=== PATIENT | female | born 1995 | race Native Hawaiian/Other Pacific Islander ===

== ENCOUNTER 2023-04-06 18:20 | Inpatient (IN) | payer MEDICAID, OTHER, SELFPAY ==
[2023-04-06] VITALS (8 sets, daily range): BP systolic 109–119; BP diastolic 56–60; TEMP 98.6; O2SAT 95–100
[~2023-04-06] VITALS: Ht 182.9 cm; Wt 185.4 kg
[2023-04-06] MEDS: SUCCINYLCHOLINE INJ 200MG/10ML VIAL IV STA (18:23)
[2023-04-06] MEDS: ETOMIDATE INJ 20MG/10ML VIAL IV ONE (18:23)
[2023-04-06] MEDS: LIDOCAINE 2% 5ML JELLY UROJET TOP ONE (18:30)
[2023-04-06] MEDS ORDERED: PROPOFOL 1,000 MG/100 ML VIAL As Ordered ONE (18:31)
[2023-04-06] MEDS: propofoL 1,000 MG in IV 1 EA IV SCH ×2 (18:37→23:35)
[2023-04-06] MEDS ORDERED: ISOVUE-370 76% 100ML VIAL As Ordered ONE (18:46)
[2023-04-06] MEDS: fentaNYL 100 MCG/2 ML INJECTION IV ONE (18:46)
[2023-04-06 18:48] LABS: ABG BASE EXCESS -4.1 (-2.0-2.0); ABG HCO3 25.4 MMOL/L (22.0-26.0); ABG O2 SATURATION 97.4 % (95.0-99.0); ABG PARTIAL PRESSURE O2 119.3 mmHg (75.0-100.0); ABG STANDARD HCO3 21.1 MMOL/L. (22.0-26.0); ABG TOTAL CO2 27.4 MMOL/L (22.0-29.0)
[2023-04-06 18:50] LABS: ABG PARTIAL PRESSURE CO2 67.6 mmHg (35.0-45.0); ABG pH (ARTERIAL) 7.192 UNITS (7.350-7.450)
[2023-04-06] MEDS: VECURONIUM BROMIDE 10MG VIAL IV ONE (19:01)
[2023-04-06 19:18] LABS: BASO % 0.2 % (0.0-1.0); EOS # 0.8 10^3/uL (0.0-0.5); EOS % 6.1 % (0.0-3.0); HEMATOCRIT 41.6 % (36.0-47.0); LYMPH # 2.1 10^3/uL (1.5-5.0); LYMPH % 15.8 % (24.0-44.0); MEAN CORPUSCULAR HEMOGLOBIN 21.4 pg (27.0-33.0); MEAN CORPUSCULAR HGB CONC 28.8 g/dl (32.0-36.5); MONO % 7.2 % (2.0-8.0); NEUTROPHILS # 9.2 10^3/uL (1.5-8.5); NEUTROPHILS % 70.1 % (36.0-66.0); PLATELET COUNT, AUTOMATED 370 10^3/uL (150-450); RED BLOOD COUNT 5.62 10^6/uL (4.00-5.40); WHITE BLOOD COUNT 13.2 10^3/uL (4.0-10.0)
[2023-04-06 19:41] LABS: OSMOLALITY SERUM 286 MOSM/KG (275-295)
[2023-04-06 19:43] LABS: ETHYL ALCOHOL (ETHANOL) < 0.003 % (0.000-0.010)
[2023-04-06 19:44] LABS: ALBUMIN 3.3 G/DL (3.2-5.2); ALKALINE PHOSPHATASE 107 U/L (46-116); ALT/SGPT 25 U/L (7.0-40); AST/SGOT 17 U/L (<34); BILIRUBIN,DIRECT < 0.1 MG/DL (<0.4); BILIRUBIN,TOTAL 0.2 MG/DL (0.3-1.2); BLOOD UREA NITROGEN 6 MG/DL (9-23); CALCIUM LEVEL 8.8 MG/DL (8.5-10.1); CARBON DIOXIDE LEVEL 30 MMOL/L (20-31); CHLORIDE LEVEL 101 MMOL/L (98-107); CPK CREATINE PHOSPHOKINASE 205 U/L (34-145); CREATININE FOR GFR 0.52 MG/DL (0.55-1.30); GLOMERULAR FILTRATION RATE > 60.0 (>60); GLUCOSE, FASTING 143 MG/DL (60-100); POTASSIUM SERUM 3.8 MMOL/L (3.5-5.1); SALICYLATE LEVEL < 3.0 MG/DL (<30); SODIUM LEVEL 138 MMOL/L (136-145); TOTAL PROTEIN 7.2 G/DL (5.7-8.2)
[2023-04-06 19:52] LABS: HCG, SERUM QUALITATIVE NEGATIVE (NEGATIVE)
[2023-04-06] MEDS: fentaNYL CITRATE/NaCl 1,000 MCG in IV 1 EA IV SCH (20:03)
[2023-04-06 20:39] LABS: AMPHETAMINES LEVEL URINE NEGATIVE (NEGATIVE); BARBITURATES URINE NEGATIVE (NEGATIVE); BENZODIAZEPINES URINE NEGATIVE (NEGATIVE); CANNABINOIDS URINE NEGATIVE (NEGATIVE); COCAINE METABOLITE URINE NEGATIVE (NEGATIVE); METHADONE URINE NEGATIVE (NEGATIVE); OPIATES URINE NEGATIVE (NEGATIVE); PHENCYCLIDINE URINE NEGATIVE (NEGATIVE)
[2023-04-06] MEDS: MIDAZOLAM INJ 2MG/2ML VIAL IV STA (20:49)
[2023-04-06 21:11] LABS: CK-MB VALUE MASS 1.3 NG/ML (<3.6); MB/CK RELATIVE INDEX 0.63 (< OR =4)
[2023-04-06 21:35] LABS: ABG BASE EXCESS 3.8 (-2.0-2.0); ABG HCO3 30.8 MMOL/L (22.0-26.0); ABG O2 SATURATION 97.8 % (95.0-99.0); ABG PARTIAL PRESSURE O2 105.8 mmHg (75.0-100.0); ABG STANDARD HCO3 27.9 MMOL/L. (22.0-26.0); ABG TOTAL CO2 32.6 MMOL/L (22.0-29.0); ABG pH (ARTERIAL) 7.343 UNITS (7.350-7.450)
[2023-04-06 21:50] LABS: CK-MB VALUE MASS 1.3 NG/ML (<3.6); MB/CK RELATIVE INDEX 0.52 (< OR =4)
[2023-04-06] MEDS ORDERED: IPRATROPIUM 0.5MG/ALBUTEROL 2.5MG INH SOL UD 3ML (DUONEB) NEB PRN (22:05)
[2023-04-06] MEDS ORDERED: HOME MED LIST COMPLETE! XX SCH (22:45)
[2023-04-06 23:07] LABS: RSV AMPLIFICATION NEGATIVE (NEGATIVE)
[2023-04-06] MEDS: MIDAZOLAM 100MG/100ML-0.9%NACL 100 MG in IV 1 EA IV SCH (23:37)
[2023-04-06 23:40] LABS: VENOUS BASE EXCESS 2.3 (-2.0-2.0); VENOUS HCO3 29.5 MMOL/L (23.0-27.0); VENOUS O2 SATURATION 98.8 % (60.0-80.0); VENOUS PARTIAL PRESSURE CO2 57.5 mmHg (38.0-50.0); VENOUS PARTIAL PRESSURE O2 144.8 mmHg (30.0-50.0); VENOUS PH 7.328 UNITS (7.330-7.430); VENOUS STANDARD HCO3 26.6 MMOL/L; VENOUS TOTAL CO2 31.3 MMOL/L (24.0-28.0)
[2023-04-07] VITALS (54 sets, daily range): BP systolic 110–165; BP diastolic 55–97; TEMP 97.8–99.1; O2SAT 94–100
[2023-04-07] MEDS: AMPICILLIN SOD/SULBACTAM SOD 3 GM in D5W MINI-BAG PLUS 100 ML IV SCH (00:26)
[2023-04-07 05:09] LABS: HEMATOCRIT 39.3 % (36.0-47.0); HEMOGLOBIN 11.8 g/dl (12.0-15.5); MEAN CORPUSCULAR HEMOGLOBIN 22.1 pg (27.0-33.0); MEAN CORPUSCULAR VOLUME 73.6 fl (80.0-96.0); PLATELET COUNT, AUTOMATED 314 10^3/uL (150-450); RED BLOOD COUNT 5.34 10^6/uL (4.00-5.40); WHITE BLOOD COUNT 11.2 10^3/uL (4.0-10.0)
[2023-04-07 05:43] LABS: PROCALCITONIN <0.04 ng/ml
[2023-04-07 05:44] LABS: ALKALINE PHOSPHATASE 95 U/L (46-116); ALT/SGPT 28 U/L (7.0-40); AST/SGOT 22 U/L (<34); BILIRUBIN,TOTAL 0.3 MG/DL (0.3-1.2); BLOOD UREA NITROGEN 5 MG/DL (9-23); CALCIUM LEVEL 8.8 MG/DL (8.5-10.1); CARBON DIOXIDE LEVEL 29 MMOL/L (20-31); CHLORIDE LEVEL 103 MMOL/L (98-107); CREATININE FOR GFR 0.49 MG/DL (0.55-1.30); GLOMERULAR FILTRATION RATE > 60.0 (>60); GLUCOSE, FASTING 114 MG/DL (60-100); POTASSIUM SERUM 3.4 MMOL/L (3.5-5.1); SODIUM LEVEL 139 MMOL/L (136-145); TOTAL PROTEIN 6.5 G/DL (5.7-8.2)
[2023-04-07 05:55] LABS: ABG HCO3 27.1 MMOL/L (22.0-26.0); ABG O2 SATURATION 97.7 % (95.0-99.0); ABG PARTIAL PRESSURE O2 105.4 mmHg (75.0-100.0); ABG STANDARD HCO3 25.4 MMOL/L. (22.0-26.0); ABG TOTAL CO2 28.6 MMOL/L (22.0-29.0)
[2023-04-07] MEDS: ENOXAPARIN 40MG/0.4ML SYRINGE (J1650 PER 10MG) SC SCH (08:46)
[2023-04-07] MEDS: D5W/0.9% SODIUM CHLORIDE 1,000 ML IV SCH (12:34)
[2023-04-07] MEDS: KCL 10MEQ/100ML SWI (KRUN) 10 MEQ in IV 1 EA IV SCH (12:35)
[2023-04-07] MEDS ORDERED: MIDAZOLAM INJ 2MG/2ML VIAL As Ordered ONE (16:04)
[2023-04-07] MEDS: MIDAZOLAM INJ 2MG/2ML VIAL IV STA (16:06)
[2023-04-07 16:18] LABS: TRIGLYCERIDES LEVEL 118 MG/DL (<150)
[2023-04-07 16:22] LABS: CPK CREATINE PHOSPHOKINASE 159 U/L (34-145)
[2023-04-07] MEDS: PANTOPRAZOLE 40MG VIAL IV SCH (16:51)
[2023-04-07] MEDS: ENOXAPARIN 60MG/0.6ML SYRINGE (J1650 PER 10MG) SC SCH (20:48)
[2023-04-08] VITALS (41 sets, daily range): BP systolic 106–166; BP diastolic 59–97; TEMP 97.9–101.5; O2SAT 93–100
[2023-04-08] MEDS: ACETAMINOPHEN *IV* 1,000 MG in IV 1 EA IV ONE ×2 (04:33→12:36)
[2023-04-08 05:25] LABS: HEMATOCRIT 41.2 % (36.0-47.0); HEMOGLOBIN 12.3 g/dl (12.0-15.5); MEAN CORPUSCULAR HEMOGLOBIN 21.9 pg (27.0-33.0); MEAN CORPUSCULAR HGB CONC 29.9 g/dl (32.0-36.5); MEAN CORPUSCULAR VOLUME 73.4 fl (80.0-96.0); PLATELET COUNT, AUTOMATED 322 10^3/uL (150-450); RED BLOOD COUNT 5.61 10^6/uL (4.00-5.40); WHITE BLOOD COUNT 12.2 10^3/uL (4.0-10.0)
[2023-04-08 05:43] LABS: ALBUMIN 2.9 G/DL (3.2-5.2); ALKALINE PHOSPHATASE 91 U/L (46-116); ALT/SGPT 25 U/L (7.0-40); AST/SGOT 20 U/L (<34); BILIRUBIN,TOTAL 0.4 MG/DL (0.3-1.2); BLOOD UREA NITROGEN 5 MG/DL (9-23); CALCIUM LEVEL 8.2 MG/DL (8.5-10.1); CARBON DIOXIDE LEVEL 33 MMOL/L (20-31); CHLORIDE LEVEL 102 MMOL/L (98-107); CREATININE FOR GFR 0.56 MG/DL (0.55-1.30); GLOMERULAR FILTRATION RATE > 60.0 (>60); GLUCOSE, FASTING 99 MG/DL (60-100); POTASSIUM SERUM 3.6 MMOL/L (3.5-5.1); SODIUM LEVEL 140 MMOL/L (136-145); TOTAL PROTEIN 6.7 G/DL (5.7-8.2)
[2023-04-08 05:46] LABS: ABG BASE EXCESS 5.2 (-2.0-2.0); ABG HCO3 31.3 MMOL/L (22.0-26.0); ABG O2 SATURATION 96.8 % (95.0-99.0); ABG PARTIAL PRESSURE CO2 52.5 mmHg (35.0-45.0); ABG PARTIAL PRESSURE O2 87.5 mmHg (75.0-100.0); ABG STANDARD HCO3 29.1 MMOL/L. (22.0-26.0); ABG TOTAL CO2 32.9 MMOL/L (22.0-29.0); ABG pH (ARTERIAL) 7.393 UNITS (7.350-7.450)
[2023-04-08] MEDS: dexmedeTOMidine 200 MCG in IV 1 EA IV SCH (07:59)
[2023-04-08] MEDS: ACETAMINOPHEN TAB 650MG DOSE (2X325MG) PO PRN (09:45)
[2023-04-08] MEDS: IBUPROFEN 400MG TAB PO ONE (09:46)
[2023-04-08] MEDS ORDERED: FENTANYL DRIP LOCK BOX KEY 1 EACH XX PRN (10:25)
[2023-04-08] MEDS ORDERED: fentaNYL 100 MCG/2 ML INJECTION As Ordered ONE (10:28)
[2023-04-08] MEDS: fentaNYL CITRATE/NaCl 1,000 MCG in IV 1 EA IV SCH (11:05)
[2023-04-08] MEDS: fentaNYL 100 MCG/2 ML INJECTION IV PRN (11:30)
[2023-04-08 14:42] LABS: CHOLESTEROL LEVEL 135 MG/DL (<200); HDL CHOLESTEROL 35.5 MG/DL (>40); LDL CHOLESTEROL 73.3 MG/DL (<100); NON-HDL-C 99.5 MG/DL; TRIGLYCERIDES LEVEL 131 MG/DL (<150)
[2023-04-08] MEDS: ASPIRIN 81MG CHEW TABLET PO SCH (14:54)
[2023-04-08] MEDS: ATORVASTATIN 20 MG TAB PO SCH (14:56)
[2023-04-08] MEDS: NS 1,000 ML IV ONE (15:04)
[2023-04-08] MEDS: MIDAZOLAM 100MG/100ML-0.9%NACL 100 MG in IV 1 EA IV SCH (15:50)
[2023-04-08] MEDS: NS 1,000 ML IV SCH (16:35)
[2023-04-08] MEDS ORDERED: PHENYLEPHRINE HCL INJ 50 MG in D5W 495 ML IV SCH (18:30)
[2023-04-08] MEDS: PHENYLEPHRINE HCL INJ 50 MG in D5W 495 ML IV SCH (18:36)
[2023-04-08] MEDS: MIDAZOLAM INJ 2MG/2ML VIAL IV PRN (19:55)
[2023-04-08] MEDS: SENNA 8.6 MG TAB (SENOKOT) PO SCH (21:18)
[2023-04-09] VITALS (60 sets, daily range): BP systolic 100–170; BP diastolic 52–93; TEMP 97.9–101.7; O2SAT 89–100
[2023-04-09] MEDS: IBUPROFEN 400MG TAB PO ONE (01:35)
[2023-04-09 05:09] LABS: HEMATOCRIT 37.9 % (36.0-47.0); HEMOGLOBIN 11.4 g/dl (12.0-15.5); MEAN CORPUSCULAR HEMOGLOBIN 22.4 pg (27.0-33.0); MEAN CORPUSCULAR HGB CONC 30.1 g/dl (32.0-36.5); MEAN CORPUSCULAR VOLUME 74.3 fl (80.0-96.0); PLATELET COUNT, AUTOMATED 353 10^3/uL (150-450); WHITE BLOOD COUNT 17.2 10^3/uL (4.0-10.0)
[2023-04-09 05:51] LABS: ALBUMIN 2.7 G/DL (3.2-5.2); ALKALINE PHOSPHATASE 81 U/L (46-116); ALT/SGPT 20 U/L (7.0-40); AST/SGOT 23 U/L (<34); BILIRUBIN,TOTAL 0.7 MG/DL (0.3-1.2); BLOOD UREA NITROGEN 11 MG/DL (9-23); CALCIUM LEVEL 8.5 MG/DL (8.5-10.1); CARBON DIOXIDE LEVEL 32 MMOL/L (20-31); CHLORIDE LEVEL 102 MMOL/L (98-107); CREATININE FOR GFR 0.54 MG/DL (0.55-1.30); GLOMERULAR FILTRATION RATE > 60.0 (>60); GLUCOSE, FASTING 97 MG/DL (60-100); MAGNESIUM LEVEL 2.3 MG/DL (1.8-2.4); POTASSIUM SERUM 3.6 MMOL/L (3.5-5.1); SODIUM LEVEL 139 MMOL/L (136-145); TOTAL PROTEIN 6.4 G/DL (5.7-8.2)
[2023-04-09 06:03] LABS: ABG BASE EXCESS 5.1 (-2.0-2.0); ABG HCO3 30.9 MMOL/L (22.0-26.0); ABG O2 SATURATION 94.2 % (95.0-99.0); ABG PARTIAL PRESSURE CO2 51.2 mmHg (35.0-45.0); ABG PARTIAL PRESSURE O2 72.6 mmHg (75.0-100.0); ABG TOTAL CO2 32.5 MMOL/L (22.0-29.0); ABG pH (ARTERIAL) 7.399 UNITS (7.350-7.450)
[2023-04-09] MEDS: MIDAZOLAM INJ 2MG/2ML VIAL IV STA ×2 (07:45→07:59)
[2023-04-09] MEDS: fentaNYL 100 MCG/2 ML INJECTION IV STA (08:00)
[2023-04-09] MEDS ORDERED: FENTANYL DRIP LOCK BOX KEY 1 EACH XX PRN (09:45)
[2023-04-09] MEDS ORDERED: fentaNYL CITRATE/NaCl 1,000 MCG in IV 1 EA IV SCH (09:45)
[2023-04-09 13:23] LABS: HIV 1&2 SCREEN NEGATIVE (NEGATIVE)
[2023-04-09 13:32] LABS: HEPATITIS C VIRUS ABY INDEX 0.14 INDEX (<0.8)
[2023-04-10] VITALS (34 sets, daily range): BP systolic 101–155; BP diastolic 52–112; TEMP 97.9–99.9; O2SAT 88–100
[2023-04-10 04:47] LABS: HEMOGLOBIN 10.1 g/dl (12.0-15.5); MEAN CORPUSCULAR HEMOGLOBIN 21.8 pg (27.0-33.0); MEAN CORPUSCULAR HGB CONC 29.7 g/dl (32.0-36.5); MEAN CORPUSCULAR VOLUME 73.3 fl (80.0-96.0); PLATELET COUNT, AUTOMATED 285 10^3/uL (150-450); RED BLOOD COUNT 4.64 10^6/uL (4.00-5.40); WHITE BLOOD COUNT 12.1 10^3/uL (4.0-10.0)
[2023-04-10 05:26] LABS: PROCALCITONIN 0.05 ng/ml
[2023-04-10 05:30] LABS: ALBUMIN 2.5 G/DL (3.2-5.2); ALKALINE PHOSPHATASE 75 U/L (46-116); ALT/SGPT 21 U/L (7.0-40); AST/SGOT 23 U/L (<34); BILIRUBIN,TOTAL 0.4 MG/DL (0.3-1.2); BLOOD UREA NITROGEN 12 MG/DL (9-23); CALCIUM LEVEL 8.5 MG/DL (8.5-10.1); CARBON DIOXIDE LEVEL 31 MMOL/L (20-31); CHLORIDE LEVEL 104 MMOL/L (98-107); CREATININE FOR GFR 0.45 MG/DL (0.55-1.30); GLOMERULAR FILTRATION RATE > 60.0 (>60); GLUCOSE, FASTING 113 MG/DL (60-100); POTASSIUM SERUM 3.7 MMOL/L (3.5-5.1); SODIUM LEVEL 141 MMOL/L (136-145)
[2023-04-10 07:09] LABS: HEPATITIS B CORE ANTIBODY IGG Negative (Negative)
[2023-04-10 09:23] LABS: ABG BASE EXCESS 6.8 (-2.0-2.0); ABG HCO3 31.6 MMOL/L (22.0-26.0); ABG O2 SATURATION 92.8 % (95.0-99.0); ABG PARTIAL PRESSURE CO2 45.6 mmHg (35.0-45.0); ABG PARTIAL PRESSURE O2 63.3 mmHg (75.0-100.0); ABG STANDARD HCO3 30.6 MMOL/L. (22.0-26.0); ABG pH (ARTERIAL) 7.458 UNITS (7.350-7.450)
[2023-04-10] MEDS: FUROSEMIDE 20MG/2ML VIAL IV ONE ×2 (09:52→12:07)
[2023-04-10] MEDS: PIPERACILLIN/TAZOBACTAM SOD 4.5 GM in D5W MINI-BAG PLUS 50 ML IV SCH (09:52)
[2023-04-10] MEDS ORDERED: ALBUTEROL SULFATE 2.5MG/0.5ML INH NEB SOLN NEB SCH (12:00)
[2023-04-10] MEDS: methylPREDNISolone 125MG 2ML VIAL IV ONE (12:15)
[2023-04-10] MEDS ORDERED: RACEPINEPHrine 2.25% UD INHAL As Ordered ONE (12:43)
[2023-04-10] MEDS: RACEPINEPHrine 2.25% UD INHAL INH ONE (12:49)
[2023-04-10] MEDS: NS 500 ML IV ONE (13:20)
[2023-04-10] MEDS: MIDAZOLAM 100MG/100ML-0.9%NACL 100 MG in IV 1 EA IV SCH (13:23)
[2023-04-10] MEDS: dexmedeTOMidine 200 MCG in IV 1 EA IV SCH (13:28)
[2023-04-10] MEDS: ETOMIDATE INJ 20MG/10ML VIAL IV ONE (13:29)
[2023-04-10] MEDS: SUCCINYLCHOLINE INJ 200MG/10ML VIAL IV ONE (13:30)
[2023-04-10] MEDS: ALBUTEROL SULFATE 2.5MG/0.5ML INH NEB SOLN NEB SCH (15:11)
[2023-04-10] MEDS: SODIUM CHLORIDE HYPERTONIC 3% 4ML NEB SOL INH SCH (15:11)
[2023-04-11] VITALS (29 sets, daily range): BP systolic 100–127; BP diastolic 55–77; TEMP 98.1–99.4; O2SAT 90–98
[2023-04-11 05:35] LABS: HEMATOCRIT 33.7 % (36.0-47.0); HEMOGLOBIN 10.1 g/dl (12.0-15.5); MEAN CORPUSCULAR HEMOGLOBIN 21.8 pg (27.0-33.0); MEAN CORPUSCULAR VOLUME 72.8 fl (80.0-96.0); PLATELET COUNT, AUTOMATED 311 10^3/uL (150-450); RED BLOOD COUNT 4.63 10^6/uL (4.00-5.40); WHITE BLOOD COUNT 14.1 10^3/uL (4.0-10.0)
[2023-04-11 05:46] LABS: ABG BASE EXCESS 8.7 (-2.0-2.0); ABG HCO3 33.3 MMOL/L (22.0-26.0); ABG PARTIAL PRESSURE CO2 46.2 mmHg (35.0-45.0); ABG PARTIAL PRESSURE O2 91.8 mmHg (75.0-100.0); ABG STANDARD HCO3 32.5 MMOL/L. (22.0-26.0); ABG TOTAL CO2 34.7 MMOL/L (22.0-29.0); ABG pH (ARTERIAL) 7.476 UNITS (7.350-7.450)
[2023-04-11 05:56] LABS: ALBUMIN 2.6 G/DL (3.2-5.2); ALKALINE PHOSPHATASE 71 U/L (46-116); ALT/SGPT 25 U/L (7.0-40); AST/SGOT 22 U/L (<34); BILIRUBIN,TOTAL 0.4 MG/DL (0.3-1.2); BLOOD UREA NITROGEN 19 MG/DL (9-23); CALCIUM LEVEL 8.6 MG/DL (8.5-10.1); CARBON DIOXIDE LEVEL 33 MMOL/L (20-31); CHLORIDE LEVEL 102 MMOL/L (98-107); CREATININE FOR GFR 0.51 MG/DL (0.55-1.30); GLOMERULAR FILTRATION RATE > 60.0 (>60); GLUCOSE, FASTING 114 MG/DL (60-100); POTASSIUM SERUM 3.8 MMOL/L (3.5-5.1); SODIUM LEVEL 141 MMOL/L (136-145); TOTAL PROTEIN 6.5 G/DL (5.7-8.2)
[2023-04-11] MEDS ORDERED: FENTANYL DRIP LOCK BOX KEY 1 EACH XX PRN (07:50)
[2023-04-11] MEDS: fentaNYL CITRATE/NaCl 1,000 MCG in IV 1 EA IV SCH (09:00)
[2023-04-11] MEDS ORDERED: LIDOCAINE 1% MDV 50ML VIAL SC ONE (09:20)
[2023-04-11] MEDS ORDERED: LIDOCAINE 1% MDV 20ML VIAL As Ordered ONE (09:35)
[2023-04-11] MEDS: LIDOCAINE 1% MDV 20ML VIAL SC ONE (10:04)
[2023-04-11] MEDS: CETACAINE SPRAY 5GM TOP ONE (10:05)
[2023-04-12] VITALS (29 sets, daily range): BP systolic 101–134; BP diastolic 51–74; TEMP 97.3–101.7; O2SAT 90–97
[2023-04-12 05:49] LABS: HEMATOCRIT 34.1 % (36.0-47.0); HEMOGLOBIN 9.9 g/dl (12.0-15.5); MEAN CORPUSCULAR HEMOGLOBIN 21.7 pg (27.0-33.0); MEAN CORPUSCULAR VOLUME 74.6 fl (80.0-96.0); PLATELET COUNT, AUTOMATED 303 10^3/uL (150-450); RED BLOOD COUNT 4.57 10^6/uL (4.00-5.40); WHITE BLOOD COUNT 11.7 10^3/uL (4.0-10.0)
[2023-04-12 05:58] LABS: ABG BASE EXCESS 8.2 (-2.0-2.0); ABG HCO3 33.1 MMOL/L (22.0-26.0); ABG O2 SATURATION 97.7 % (95.0-99.0); ABG PARTIAL PRESSURE CO2 47.7 mmHg (35.0-45.0); ABG PARTIAL PRESSURE O2 104.7 mmHg (75.0-100.0); ABG TOTAL CO2 34.6 MMOL/L (22.0-29.0); ABG pH (ARTERIAL) 7.459 UNITS (7.350-7.450)
[2023-04-12 06:08] LABS: ALBUMIN 2.6 G/DL (3.2-5.2); ALKALINE PHOSPHATASE 69 U/L (46-116); ALT/SGPT 33 U/L (7.0-40); AST/SGOT 28 U/L (<34); BILIRUBIN,TOTAL 0.4 MG/DL (0.3-1.2); BLOOD UREA NITROGEN 20 MG/DL (9-23); CALCIUM LEVEL 8.3 MG/DL (8.5-10.1); CARBON DIOXIDE LEVEL 33 MMOL/L (20-31); CHLORIDE LEVEL 103 MMOL/L (98-107); CREATININE FOR GFR 0.57 MG/DL (0.55-1.30); GLOMERULAR FILTRATION RATE > 60.0 (>60); GLUCOSE, FASTING 116 MG/DL (60-100); POTASSIUM SERUM 3.6 MMOL/L (3.5-5.1); SODIUM LEVEL 141 MMOL/L (136-145); TOTAL PROTEIN 6.2 G/DL (5.7-8.2)
[2023-04-12] MEDS: IBUPROFEN 400MG TAB PO PRN (12:54)
[2023-04-12] MEDS: ACETAMINOPHEN *IV* 1,000 MG in IV 1 EA IV ONE (17:36)
[2023-04-13] VITALS (30 sets, daily range): BP systolic 97–116; BP diastolic 52–61; TEMP 97.7–101.7; O2SAT 91–98
[2023-04-13] MEDS: MIDAZOLAM 100MG/100ML-0.9%NACL 100 MG in IV 1 EA IV SCH (03:47)
[2023-04-13 04:35] LABS: HEMATOCRIT 34.1 % (36.0-47.0); HEMOGLOBIN 9.9 g/dl (12.0-15.5); MEAN CORPUSCULAR HEMOGLOBIN 21.9 pg (27.0-33.0); MEAN CORPUSCULAR VOLUME 75.4 fl (80.0-96.0); PLATELET COUNT, AUTOMATED 290 10^3/uL (150-450); RED BLOOD COUNT 4.52 10^6/uL (4.00-5.40); WHITE BLOOD COUNT 11.8 10^3/uL (4.0-10.0)
[2023-04-13 04:59] LABS: ALBUMIN 2.6 G/DL (3.2-5.2); ALKALINE PHOSPHATASE 80 U/L (46-116); ALT/SGPT 36 U/L (7.0-40); AST/SGOT 28 U/L (<34); BILIRUBIN,TOTAL 0.5 MG/DL (0.3-1.2); BLOOD UREA NITROGEN 18 MG/DL (9-23); CALCIUM LEVEL 8.5 MG/DL (8.5-10.1); CARBON DIOXIDE LEVEL 34 MMOL/L (20-31); CHLORIDE LEVEL 102 MMOL/L (98-107); GLOMERULAR FILTRATION RATE > 60.0 (>60); GLUCOSE, FASTING 107 MG/DL (60-100); POTASSIUM SERUM 3.5 MMOL/L (3.5-5.1); SODIUM LEVEL 140 MMOL/L (136-145); TOTAL PROTEIN 6.2 G/DL (5.7-8.2)
[2023-04-13 05:42] LABS: ABG BASE EXCESS 7.5 (-2.0-2.0); ABG HCO3 33.3 MMOL/L (22.0-26.0); ABG O2 SATURATION 95.8 % (95.0-99.0); ABG PARTIAL PRESSURE CO2 53.3 mmHg (35.0-45.0); ABG STANDARD HCO3 31.3 MMOL/L. (22.0-26.0); ABG pH (ARTERIAL) 7.414 UNITS (7.350-7.450)
[2023-04-13 10:36] LABS: CLOSTRIDIUM DIFFICILE PCR NEGATIVE (NEGATIVE)
[2023-04-13 10:58] LABS: DRVV SCREEN 60.5 SECONDS
[2023-04-13 11:03] LABS: PTT LUPUS TYPE ANTICOAG SCREEN 1.53 (0-1.20)
[2023-04-13 11:09] LABS: DRVV CONFIRM 47.6 SECONDS; LUPUS CONFIRM RATIO 1.26
[2023-04-13 11:11] LABS: NORMALIZED RATIO 1.21 (0.00-1.20)
[2023-04-13] MEDS: ACETAMINOPHEN *IV* 1,000 MG in IV 1 EA IV PRN (15:10)
[2023-04-13 18:16] LABS: APPEARANCE, URINE CLOUDY (CLEAR); BACTERIA, URINE AUTO NEGATIVE (NEGATIVE); BILIRUBIN, URINE AUTO NEGATIVE (NEGATIVE); BLOOD, URINE BLOOD 2+ (NEGATIVE); COLOR, URINE AMBER (YELLOW); GLUCOSE, URINE (UA) AUTO NEGATIVE (NEGATIVE); KETONE, URINE AUTO NEGATIVE (NEGATIVE); LEUKOCYTE ESTERASE, URINE AUTO 1+ (NEGATIVE); MUCUS, URINE SMALL (NEGATIVE); NITRITE, URINE AUTO NEGATIVE (NEGATIVE); PROTEIN, URINE AUTO 3+ mg/dL (NEGATIVE); RBC, URINE AUTO TNTC /HPF (0-3); SQUAMOUS EPITHELIAL CELL UR AU 3 /HPF (0-6); WBC, URINE AUTO 8 /HPF (0-3)
[2023-04-13] MEDS: propofoL 1,000 MG in IV 1 EA IV SCH (23:19)
[2023-04-14] VITALS (57 sets, daily range): BP systolic 97–137; BP diastolic 54–72; TEMP 99.1–101.1; O2SAT 89–98
[2023-04-14 04:27] LABS: HEMATOCRIT 33.2 % (36.0-47.0); HEMOGLOBIN 9.5 g/dl (12.0-15.5); MEAN CORPUSCULAR HEMOGLOBIN 21.7 pg (27.0-33.0); MEAN CORPUSCULAR HGB CONC 28.6 g/dl (32.0-36.5); PLATELET COUNT, AUTOMATED 295 10^3/uL (150-450); RED BLOOD COUNT 4.37 10^6/uL (4.00-5.40); WHITE BLOOD COUNT 12.1 10^3/uL (4.0-10.0)
[2023-04-14 04:54] LABS: ALBUMIN 2.5 G/DL (3.2-5.2); ALKALINE PHOSPHATASE 79 U/L (46-116); ALT/SGPT 36 U/L (7.0-40); AST/SGOT 20 U/L (<34); BILIRUBIN,TOTAL 0.4 MG/DL (0.3-1.2); BLOOD UREA NITROGEN 17 MG/DL (9-23); CALCIUM LEVEL 8.7 MG/DL (8.5-10.1); CARBON DIOXIDE LEVEL 35 MMOL/L (20-31); CHLORIDE LEVEL 104 MMOL/L (98-107); CREATININE FOR GFR 0.53 MG/DL (0.55-1.30); GLOMERULAR FILTRATION RATE > 60.0 (>60); GLUCOSE, FASTING 91 MG/DL (60-100); POTASSIUM SERUM 3.8 MMOL/L (3.5-5.1); SODIUM LEVEL 141 MMOL/L (136-145); TOTAL PROTEIN 6.3 G/DL (5.7-8.2)
[2023-04-14 05:41] LABS: ABG BASE EXCESS 5.4 (-2.0-2.0); ABG HCO3 30.9 MMOL/L (22.0-26.0); ABG PARTIAL PRESSURE CO2 49.7 mmHg (35.0-45.0); ABG PARTIAL PRESSURE O2 73.4 mmHg (75.0-100.0); ABG STANDARD HCO3 29.3 MMOL/L. (22.0-26.0); ABG TOTAL CO2 32.5 MMOL/L (22.0-29.0); ABG pH (ARTERIAL) 7.412 UNITS (7.350-7.450)
[2023-04-14] MEDS: DOXYCYCLINE HYCLATE 100 MG in D5W MINI-BAG PLUS 100 ML IV SCH (09:41)
[2023-04-14 16:09] LABS: ANCA-ATYPICAL <1:20 titer (Neg:<1:20); ANTINUCLEAR ANTIBODIES DIRECT Negative (Negative); CYTOPLASMIC NEUTROP AB ANCA-C <1:20 titer (Neg:<1:20); PERINUCLEAR AB ANCA-P <1:20 titer (Neg:<1:20)
[2023-04-15] VITALS (46 sets, daily range): BP systolic 93–141; BP diastolic 50–74; TEMP 99.2–101; O2SAT 88–100
[2023-04-15 04:12] LABS: HEMATOCRIT 34.5 % (36.0-47.0); HEMOGLOBIN 9.9 g/dl (12.0-15.5); MEAN CORPUSCULAR HEMOGLOBIN 21.9 pg (27.0-33.0); MEAN CORPUSCULAR HGB CONC 28.7 g/dl (32.0-36.5); MEAN CORPUSCULAR VOLUME 76.3 fl (80.0-96.0); PLATELET COUNT, AUTOMATED 302 10^3/uL (150-450); RED BLOOD COUNT 4.52 10^6/uL (4.00-5.40); WHITE BLOOD COUNT 12.8 10^3/uL (4.0-10.0)
[2023-04-15 04:37] LABS: ALBUMIN 2.7 G/DL (3.2-5.2); ALKALINE PHOSPHATASE 84 U/L (46-116); ALT/SGPT 35 U/L (7.0-40); AST/SGOT 20 U/L (<34); BILIRUBIN,TOTAL 0.5 MG/DL (0.3-1.2); BLOOD UREA NITROGEN 16 MG/DL (9-23); CALCIUM LEVEL 9.3 MG/DL (8.5-10.1); CARBON DIOXIDE LEVEL 33 MMOL/L (20-31); CHLORIDE LEVEL 105 MMOL/L (98-107); CREATININE FOR GFR 0.56 MG/DL (0.55-1.30); GLOMERULAR FILTRATION RATE > 60.0 (>60); GLUCOSE, FASTING 85 MG/DL (60-100); POTASSIUM SERUM 3.8 MMOL/L (3.5-5.1); SODIUM LEVEL 143 MMOL/L (136-145); TOTAL PROTEIN 6.6 G/DL (5.7-8.2)
[2023-04-15 06:06] LABS: ABG BASE EXCESS 8.2 (-2.0-2.0); ABG HCO3 33.8 MMOL/L (22.0-26.0); ABG O2 SATURATION 94.1 % (95.0-99.0); ABG PARTIAL PRESSURE CO2 51.8 mmHg (35.0-45.0); ABG PARTIAL PRESSURE O2 72.3 mmHg (75.0-100.0); ABG TOTAL CO2 35.4 MMOL/L (22.0-29.0); ABG pH (ARTERIAL) 7.432 UNITS (7.350-7.450)
[2023-04-15] MEDS: ALBUTEROL SULFATE 2.5MG/0.5ML INH NEB SOLN NEB PRN (07:55)
[2023-04-15 15:10] LABS: HEXAGONAL PHASE PHOSPHOLIPID 4 sec (0-11)
[2023-04-16] VITALS (37 sets, daily range): BP systolic 94–240; BP diastolic 54–188; TEMP 98.2–99.8; O2SAT 85–100
[2023-04-16 04:32] LABS: HEMATOCRIT 34.6 % (36.0-47.0); MEAN CORPUSCULAR HEMOGLOBIN 22.2 pg (27.0-33.0); MEAN CORPUSCULAR HGB CONC 28.9 g/dl (32.0-36.5); MEAN CORPUSCULAR VOLUME 76.7 fl (80.0-96.0); PLATELET COUNT, AUTOMATED 303 10^3/uL (150-450); RED BLOOD COUNT 4.51 10^6/uL (4.00-5.40); WHITE BLOOD COUNT 12.2 10^3/uL (4.0-10.0)
[2023-04-16 05:08] LABS: ALBUMIN 2.7 G/DL (3.2-5.2); ALKALINE PHOSPHATASE 84 U/L (46-116); ALT/SGPT 33 U/L (7.0-40); AST/SGOT 22 U/L (<34); BILIRUBIN,TOTAL 0.5 MG/DL (0.3-1.2); BLOOD UREA NITROGEN 16 MG/DL (9-23); CARBON DIOXIDE LEVEL 33 MMOL/L (20-31); CHLORIDE LEVEL 102 MMOL/L (98-107); CREATININE FOR GFR 0.55 MG/DL (0.55-1.30); GLOMERULAR FILTRATION RATE > 60.0 (>60); GLUCOSE, FASTING 93 MG/DL (60-100); POTASSIUM SERUM 4.1 MMOL/L (3.5-5.1); SODIUM LEVEL 140 MMOL/L (136-145); TOTAL PROTEIN 6.7 G/DL (5.7-8.2)
[2023-04-16] MEDS ORDERED: LIDOCAINE 2% 100MG/5ML SDV (FOR ANES.) As Ordered ONE (07:00)
[2023-04-16] MEDS ORDERED: ONDANSETRON 4MG 2ML VIAL As Ordered ONE (07:00)
[2023-04-16] MEDS ORDERED: ROCURONIUM BROMIDE 50MG/5ML VIAL As Ordered ONE (07:00)
[2023-04-16] MEDS ORDERED: propofoL 200 MG/20 ML VIAL As Ordered ONE (07:00)
[2023-04-16] MEDS: LIDOCAINE W/EPINEPHRINE 1% 20ML VIAL As Ordered ONE (07:56)
[2023-04-17] VITALS (26 sets, daily range): BP systolic 95–138; BP diastolic 46–76; TEMP 97.6–99.9; O2SAT 89–96
[2023-04-17 05:01] LABS: BASO % 0.2 % (0.0-1.0); EOS # 0.6 10^3/uL (0.0-0.5); EOS % 5.4 % (0.0-3.0); HEMATOCRIT 33.1 % (36.0-47.0); HEMOGLOBIN 9.7 g/dl (12.0-15.5); LYMPH # 1.6 10^3/uL (1.5-5.0); LYMPH % 14.9 % (24.0-44.0); MEAN CORPUSCULAR HEMOGLOBIN 22.4 pg (27.0-33.0); MEAN CORPUSCULAR HGB CONC 29.3 g/dl (32.0-36.5); MEAN CORPUSCULAR VOLUME 76.3 fl (80.0-96.0); MONO # 0.8 10^3/uL (0.0-0.8); MONO % 7.2 % (2.0-8.0); NEUTROPHILS # 7.9 10^3/uL (1.5-8.5); NEUTROPHILS % 71.5 % (36.0-66.0); PLATELET COUNT, AUTOMATED 307 10^3/uL (150-450); RED BLOOD COUNT 4.34 10^6/uL (4.00-5.40)
[2023-04-17] MEDS ORDERED: MIDAZOLAM INJ 2MG/2ML VIAL IV PRN (10:50)
[2023-04-17] MEDS: ENOXAPARIN 60MG/0.6ML SYRINGE (J1650 PER 10MG) SC SCH (22:58)
[2023-04-18] VITALS (24 sets, daily range): BP systolic 121–160; BP diastolic 57–85; TEMP 97.4–98.7; O2SAT 91–100
[2023-04-18 05:02] LABS: BLOOD UREA NITROGEN 14 MG/DL (9-23); CARBON DIOXIDE LEVEL 33 MMOL/L (20-31); CHLORIDE LEVEL 102 MMOL/L (98-107); CREATININE FOR GFR 0.46 MG/DL (0.55-1.30); GLOMERULAR FILTRATION RATE > 60.0 (>60); GLUCOSE, FASTING 100 MG/DL (60-100); POTASSIUM SERUM 3.7 MMOL/L (3.5-5.1); SODIUM LEVEL 139 MMOL/L (136-145)
[2023-04-18] MEDS: HYDROMORPHONE HCL 0.5 MG/ 0.5 ML SYRINGE IV PRN (23:52)
[2023-04-19] VITALS (14 sets, daily range): BP systolic 120–142; BP diastolic 59–78; TEMP 97.8–98.9; O2SAT 93–100
[2023-04-19 05:21] LABS: BLOOD UREA NITROGEN 16 MG/DL (9-23); CALCIUM LEVEL 9.5 MG/DL (8.5-10.1); CARBON DIOXIDE LEVEL 32 MMOL/L (20-31); CHLORIDE LEVEL 103 MMOL/L (98-107); CREATININE FOR GFR 0.44 MG/DL (0.55-1.30); GLOMERULAR FILTRATION RATE > 60.0 (>60); GLUCOSE, FASTING 108 MG/DL (60-100); PHOSPHORUS LEVEL 4.9 MG/DL (2.5-4.9); POTASSIUM SERUM 3.7 MMOL/L (3.5-5.1); SODIUM LEVEL 139 MMOL/L (136-145)
[2023-04-20] VITALS (24 sets, daily range): BP systolic 116–141; BP diastolic 61–79; TEMP 97.1–99.3; O2SAT 93–98
[2023-04-20 04:57] LABS: BLOOD UREA NITROGEN 17 MG/DL (9-23); CALCIUM LEVEL 9.5 MG/DL (8.5-10.1); CARBON DIOXIDE LEVEL 32 MMOL/L (20-31); CHLORIDE LEVEL 103 MMOL/L (98-107); CREATININE FOR GFR 0.46 MG/DL (0.55-1.30); GLOMERULAR FILTRATION RATE > 60.0 (>60); GLUCOSE, FASTING 113 MG/DL (60-100); POTASSIUM SERUM 3.8 MMOL/L (3.5-5.1); SODIUM LEVEL 139 MMOL/L (136-145)
[2023-04-20] MEDS: FUROSEMIDE 20MG/2ML VIAL IV ONE (10:36)
[2023-04-20 15:08] LABS: ANTI THROMBIN 3 ANTIGEN IMMUNO 110 % (72-124); ANTI THROMBIN 3 FUNCT ACTIVITY 105 % (75-135); CARDIOLIPIN IGA ANTIBODY <9 APL U/mL (0-11); CARDIOLIPIN IGG ANTIBODY <9 GPL U/mL (0-14); CARDIOLIPIN IGM ANTIBODY <9 MPL U/mL (0-12); F8 ACTIVITY FOR F8 PANEL 107 % (56-140); F8 ACTIVITY vWB FOR F8 PANEL 168 % (50-200); F8 ANTIGEN FOR F8 PANEL 196 % (50-200); PROTEIN C ANTIGEN 118 % (60-150); PROTEIN S ANTIGEN FREE 91 % (61-136); PROTEIN S ANTIGEN TOTAL 121 % (60-150)
[2023-04-21] VITALS (22 sets, daily range): BP systolic 117–143; BP diastolic 61–93; TEMP 97.7–99; O2SAT 81–100
[2023-04-21 04:47] LABS: VENOUS PH 7.427 UNITS (7.330-7.430)
[2023-04-21 04:48] LABS: VENOUS HCO3 31.3 MMOL/L (23.0-27.0); VENOUS O2 SATURATION 90.5 % (60.0-80.0); VENOUS PARTIAL PRESSURE CO2 48.6 mmHg (38.0-50.0); VENOUS PARTIAL PRESSURE O2 60.8 mmHg (30.0-50.0); VENOUS STANDARD HCO3 29.7 MMOL/L; VENOUS TOTAL CO2 32.8 MMOL/L (24.0-28.0)
[2023-04-21 04:56] LABS: BASO % 0.2 % (0.0-1.0); EOS # 0.4 10^3/uL (0.0-0.5); EOS % 3.4 % (0.0-3.0); HEMATOCRIT 36.1 % (36.0-47.0); HEMOGLOBIN 10.7 g/dl (12.0-15.5); LYMPH # 1.8 10^3/uL (1.5-5.0); LYMPH % 15.5 % (24.0-44.0); MEAN CORPUSCULAR HEMOGLOBIN 22.2 pg (27.0-33.0); MEAN CORPUSCULAR HGB CONC 29.6 g/dl (32.0-36.5); MEAN CORPUSCULAR VOLUME 75.1 fl (80.0-96.0); MONO # 0.8 10^3/uL (0.0-0.8); MONO % 7.1 % (2.0-8.0); NEUTROPHILS # 8.6 10^3/uL (1.5-8.5); NEUTROPHILS % 73.5 % (36.0-66.0); PLATELET COUNT, AUTOMATED 444 10^3/uL (150-450); RED BLOOD COUNT 4.81 10^6/uL (4.00-5.40); WHITE BLOOD COUNT 11.6 10^3/uL (4.0-10.0)
[2023-04-21 05:13] LABS: BLOOD UREA NITROGEN 19 MG/DL (9-23); CALCIUM LEVEL 9.4 MG/DL (8.5-10.1); CARBON DIOXIDE LEVEL 32 MMOL/L (20-31); CHLORIDE LEVEL 102 MMOL/L (98-107); CREATININE FOR GFR 0.45 MG/DL (0.55-1.30); GLOMERULAR FILTRATION RATE > 60.0 (>60); GLUCOSE, FASTING 109 MG/DL (60-100); POTASSIUM SERUM 3.5 MMOL/L (3.5-5.1); SODIUM LEVEL 139 MMOL/L (136-145)
[2023-04-21] MEDS: FUROSEMIDE 20MG/2ML VIAL IV ONE (22:24)
[2023-04-22] VITALS (12 sets, daily range): BP systolic 117–159; BP diastolic 58–88; TEMP 97.2–99; O2SAT 92–100
[2023-04-22 05:22] LABS: BASO % 0.3 % (0.0-1.0); EOS # 0.3 10^3/uL (0.0-0.5); EOS % 2.4 % (0.0-3.0); HEMATOCRIT 38.3 % (36.0-47.0); HEMOGLOBIN 11.2 g/dl (12.0-15.5); LYMPH # 1.6 10^3/uL (1.5-5.0); LYMPH % 14.9 % (24.0-44.0); MEAN CORPUSCULAR HGB CONC 29.2 g/dl (32.0-36.5); MEAN CORPUSCULAR VOLUME 75.4 fl (80.0-96.0); MONO # 0.7 10^3/uL (0.0-0.8); MONO % 5.9 % (2.0-8.0); NEUTROPHILS # 8.4 10^3/uL (1.5-8.5); NEUTROPHILS % 76.1 % (36.0-66.0); PLATELET COUNT, AUTOMATED 433 10^3/uL (150-450); RED BLOOD COUNT 5.08 10^6/uL (4.00-5.40)
[2023-04-22 05:49] LABS: BLOOD UREA NITROGEN 19 MG/DL (9-23); CALCIUM LEVEL 9.4 MG/DL (8.5-10.1); CARBON DIOXIDE LEVEL 32 MMOL/L (20-31); CHLORIDE LEVEL 102 MMOL/L (98-107); CREATININE FOR GFR 0.48 MG/DL (0.55-1.30); GLOMERULAR FILTRATION RATE > 60.0 (>60); GLUCOSE, FASTING 114 MG/DL (60-100); PHOSPHORUS LEVEL 5.1 MG/DL (2.5-4.9); SODIUM LEVEL 140 MMOL/L (136-145)
[2023-04-22 05:54] LABS: FERRITIN 22.1 NG/ML (7.3-270.7); TOTAL 25(OH) VITAMIN D 25.7 NG/ML (20.0-100.0)
[2023-04-22 05:55] LABS: VITAMIN B12 LEVEL 732 PG/ML (211-911)
[2023-04-22 05:57] LABS: FOLATE 22.09 NG/ML (>5.4)
[2023-04-22] MEDS: VANCOMYCIN HCL 1,000 MG, VIAL MATE ADAPTER 1 EACH in D5W 250 ML IV SCH ×2 (12:07→17:36)
[2023-04-22] MEDS: METHYLENE BLUE 0.5% (5MG/ML) 10 ML AMP (PROVAYBLUE) XX ONE (16:37)
[2023-04-22] MEDS: NEOSPORIN OINT 0.9 GM PKT TOP ONE ×2 (16:45→17:36)
[2023-04-23] VITALS (9 sets, daily range): BP systolic 116–141; BP diastolic 57–80; TEMP 97.5–97.8; O2SAT 93–98
[2023-04-23 06:17] LABS: BASO % 0.3 % (0.0-1.0); EOS # 0.3 10^3/uL (0.0-0.5); EOS % 3.3 % (0.0-3.0); HEMATOCRIT 38.2 % (36.0-47.0); HEMOGLOBIN 11.3 g/dl (12.0-15.5); LYMPH # 1.8 10^3/uL (1.5-5.0); LYMPH % 17.7 % (24.0-44.0); MEAN CORPUSCULAR HEMOGLOBIN 22.2 pg (27.0-33.0); MEAN CORPUSCULAR HGB CONC 29.6 g/dl (32.0-36.5); MEAN CORPUSCULAR VOLUME 75.2 fl (80.0-96.0); MONO # 0.8 10^3/uL (0.0-0.8); MONO % 7.4 % (2.0-8.0); NEUTROPHILS # 7.2 10^3/uL (1.5-8.5); PLATELET COUNT, AUTOMATED 447 10^3/uL (150-450); RED BLOOD COUNT 5.08 10^6/uL (4.00-5.40); WHITE BLOOD COUNT 10.1 10^3/uL (4.0-10.0)
[2023-04-23 06:31] LABS: ALKALINE PHOSPHATASE 82 U/L (46-116); ALT/SGPT 39 U/L (7.0-40); AST/SGOT 36 U/L (<34); BILIRUBIN,TOTAL 0.4 MG/DL (0.3-1.2); BLOOD UREA NITROGEN 20 MG/DL (9-23); CALCIUM LEVEL 9.4 MG/DL (8.5-10.1); CARBON DIOXIDE LEVEL 30 MMOL/L (20-31); CHLORIDE LEVEL 103 MMOL/L (98-107); CREATININE FOR GFR 0.42 MG/DL (0.55-1.30); GLOMERULAR FILTRATION RATE > 60.0 (>60); GLUCOSE, FASTING 102 MG/DL (60-100); POTASSIUM SERUM 4.8 MMOL/L (3.5-5.1); SODIUM LEVEL 139 MMOL/L (136-145); TOTAL PROTEIN 7.2 G/DL (5.7-8.2)
[2023-04-23] MEDS: SIMETHICONE 80MG CHEW TAB PO PRN (11:37)
[2023-04-23] MEDS: MIRALAX *UNIT DOSE* 17GM PACKET PO SCH (11:37)
[2023-04-23] MEDS: SODIUM CHLORIDE 0.9% INJ 10 ML SYR IV SCH (11:39)
[2023-04-23] MEDS: CIPROFLOXACIN 0.3% OPHTH SOLN 2.5ML OU SCH (16:43)
[2023-04-24] VITALS (8 sets, daily range): BP systolic 104–143; BP diastolic 55–91; TEMP 97.4–98.3; O2SAT 93–97
[2023-04-24 04:43] LABS: BASO % 0.3 % (0.0-1.0); EOS # 0.3 10^3/uL (0.0-0.5); EOS % 2.6 % (0.0-3.0); HEMOGLOBIN 11.2 g/dl (12.0-15.5); LYMPH # 1.7 10^3/uL (1.5-5.0); LYMPH % 17.3 % (24.0-44.0); MEAN CORPUSCULAR HEMOGLOBIN 21.5 pg (27.0-33.0); MEAN CORPUSCULAR HGB CONC 28.7 g/dl (32.0-36.5); MONO # 0.6 10^3/uL (0.0-0.8); MONO % 6.3 % (2.0-8.0); NEUTROPHILS # 7.3 10^3/uL (1.5-8.5); NEUTROPHILS % 73.2 % (36.0-66.0); PLATELET COUNT, AUTOMATED 465 10^3/uL (150-450)
[2023-04-24 05:07] LABS: ALKALINE PHOSPHATASE 84 U/L (46-116); ALT/SGPT 39 U/L (7.0-40); AST/SGOT 19 U/L (<34); BILIRUBIN,TOTAL 0.4 MG/DL (0.3-1.2); BLOOD UREA NITROGEN 19 MG/DL (9-23); CALCIUM LEVEL 9.3 MG/DL (8.5-10.1); CARBON DIOXIDE LEVEL 31 MMOL/L (20-31); CHLORIDE LEVEL 103 MMOL/L (98-107); CREATININE FOR GFR 0.44 MG/DL (0.55-1.30); GLOMERULAR FILTRATION RATE > 60.0 (>60); GLUCOSE, FASTING 117 MG/DL (60-100); PHOSPHORUS LEVEL 4.8 MG/DL (2.5-4.9); SODIUM LEVEL 139 MMOL/L (136-145); TOTAL PROTEIN 7.2 G/DL (5.7-8.2)
[2023-04-24 17:04] LABS: CK-MB VALUE MASS < 1.0 NG/ML (<3.6)
[2023-04-24 17:05] LABS: CPK CREATINE PHOSPHOKINASE 70 U/L (34-145); MB/CK RELATIVE INDEX 1.42 (< OR =4)
[2023-04-24 18:06] LABS: CK-MB VALUE MASS < 1.0 NG/ML (<3.6)
[2023-04-24 18:11] LABS: CPK CREATINE PHOSPHOKINASE 82 U/L (34-145); MB/CK RELATIVE INDEX 1.21 (< OR =4)
[2023-04-24 20:14] LABS: INR 1.19; PROTHROMBIN TIME 14.7 SECONDS (12.5-14.5)
[2023-04-24 20:15] LABS: PARTIAL THROMBOPLASTIN TIME 35.9 SECONDS (24.8-34.2)
[2023-04-25] VITALS (9 sets, daily range): BP systolic 125–154; BP diastolic 66–85; TEMP 96.7–98.1; O2SAT 91–99
[2023-04-25 04:49] LABS: BASO % 0.2 % (0.0-1.0); EOS # 0.2 10^3/uL (0.0-0.5); EOS % 2.3 % (0.0-3.0); HEMATOCRIT 40.4 % (36.0-47.0); HEMOGLOBIN 11.7 g/dl (12.0-15.5); LYMPH # 1.6 10^3/uL (1.5-5.0); LYMPH % 15.6 % (24.0-44.0); MEAN CORPUSCULAR HEMOGLOBIN 21.9 pg (27.0-33.0); MEAN CORPUSCULAR VOLUME 75.7 fl (80.0-96.0); MONO # 0.7 10^3/uL (0.0-0.8); MONO % 6.7 % (2.0-8.0); NEUTROPHILS # 7.7 10^3/uL (1.5-8.5); NEUTROPHILS % 74.8 % (36.0-66.0); PLATELET COUNT, AUTOMATED 471 10^3/uL (150-450); RED BLOOD COUNT 5.34 10^6/uL (4.00-5.40); WHITE BLOOD COUNT 10.2 10^3/uL (4.0-10.0)
[2023-04-25 05:15] LABS: BLOOD UREA NITROGEN 18 MG/DL (9-23); CALCIUM LEVEL 9.6 MG/DL (8.5-10.1); CARBON DIOXIDE LEVEL 32 MMOL/L (20-31); CHLORIDE LEVEL 101 MMOL/L (98-107); CREATININE FOR GFR 0.45 MG/DL (0.55-1.30); GLOMERULAR FILTRATION RATE > 60.0 (>60); GLUCOSE, FASTING 116 MG/DL (60-100); SODIUM LEVEL 138 MMOL/L (136-145)
[2023-04-25 17:40] LABS: PROCALCITONIN <0.04 ng/ml
[2023-04-26 04:01] VITALS: BP 126/67; TEMP 97.4; O2SAT 91
[2023-04-26 05:31] LABS: BASO % 0.2 % (0.0-1.0); EOS # 0.2 10^3/uL (0.0-0.5); EOS % 2.1 % (0.0-3.0); HEMATOCRIT 40.6 % (36.0-47.0); LYMPH # 1.7 10^3/uL (1.5-5.0); LYMPH % 15.9 % (24.0-44.0); MEAN CORPUSCULAR HEMOGLOBIN 22.5 pg (27.0-33.0); MEAN CORPUSCULAR HGB CONC 29.6 g/dl (32.0-36.5); MONO # 0.9 10^3/uL (0.0-0.8); MONO % 8.1 % (2.0-8.0); NEUTROPHILS # 8.1 10^3/uL (1.5-8.5); NEUTROPHILS % 73.3 % (36.0-66.0); PLATELET COUNT, AUTOMATED 429 10^3/uL (150-450); RED BLOOD COUNT 5.34 10^6/uL (4.00-5.40)
[2023-04-26 05:53] LABS: BLOOD UREA NITROGEN 16 MG/DL (9-23); CALCIUM LEVEL 9.7 MG/DL (8.5-10.1); CARBON DIOXIDE LEVEL 33 MMOL/L (20-31); CHLORIDE LEVEL 97 MMOL/L (98-107); CREATININE FOR GFR 0.48 MG/DL (0.55-1.30); GLOMERULAR FILTRATION RATE > 60.0 (>60); GLUCOSE, FASTING 113 MG/DL (60-100); POTASSIUM SERUM 4.1 MMOL/L (3.5-5.1); SODIUM LEVEL 136 MMOL/L (136-145)
[2023-04-26 07:26] VITALS: BP 132/79; TEMP 97.2; O2SAT 95
[2023-04-26 07:45] VITALS: O2SAT 96
[2023-04-26] MEDS ORDERED: VANCOMYCIN HCL 750 MG, VIAL MATE ADAPTER 1 EACH in D5W 250 ML IV SCH (10:20)
[2023-04-26] MEDS: VANCOMYCIN HCL 1,000 MG, VIAL MATE ADAPTER 1 EACH in D5W 250 ML IV ONE ×2 (11:31→13:07)
[2023-04-26 11:35] VITALS: BP 134/73; TEMP 97.7; O2SAT 94
[2023-04-26 16:19] VITALS: BP 130/96; TEMP 97.4; O2SAT 100
[2023-04-26] MEDS: VANCOMYCIN HCL 1,000 MG, VIAL MATE ADAPTER 1 EACH in D5W 250 ML IV SCH (17:28)
[2023-04-26 20:09] VITALS: BP 134/70; TEMP 98; O2SAT 96
[2023-04-27] VITALS (20 sets, daily range): BP systolic 112–146; BP diastolic 54–92; TEMP 97.5–98.6; O2SAT 90–99
[2023-04-27 05:36] LABS: BASO % 0.2 % (0.0-1.0); EOS # 0.3 10^3/uL (0.0-0.5); EOS % 3.1 % (0.0-3.0); HEMATOCRIT 38.8 % (36.0-47.0); HEMOGLOBIN 11.6 g/dl (12.0-15.5); LYMPH # 1.7 10^3/uL (1.5-5.0); LYMPH % 16.4 % (24.0-44.0); MEAN CORPUSCULAR HEMOGLOBIN 22.5 pg (27.0-33.0); MEAN CORPUSCULAR HGB CONC 29.9 g/dl (32.0-36.5); MEAN CORPUSCULAR VOLUME 75.3 fl (80.0-96.0); MONO # 0.8 10^3/uL (0.0-0.8); MONO % 7.4 % (2.0-8.0); NEUTROPHILS # 7.6 10^3/uL (1.5-8.5); NEUTROPHILS % 72.6 % (36.0-66.0); PLATELET COUNT, AUTOMATED 425 10^3/uL (150-450); RED BLOOD COUNT 5.15 10^6/uL (4.00-5.40); WHITE BLOOD COUNT 10.5 10^3/uL (4.0-10.0)
[2023-04-27 06:05] LABS: BLOOD UREA NITROGEN 13 MG/DL (9-23); CALCIUM LEVEL 9.6 MG/DL (8.5-10.1); CARBON DIOXIDE LEVEL 33 MMOL/L (20-31); CHLORIDE LEVEL 97 MMOL/L (98-107); CREATININE FOR GFR 0.48 MG/DL (0.55-1.30); GLOMERULAR FILTRATION RATE > 60.0 (>60); GLUCOSE, FASTING 121 MG/DL (60-100); MAGNESIUM LEVEL 1.8 MG/DL (1.8-2.4); POTASSIUM SERUM 3.4 MMOL/L (3.5-5.1); SODIUM LEVEL 135 MMOL/L (136-145)
[2023-04-27] MEDS: POTASSIUM CHLORIDE 10% LIQ 20MEQ/15ML UDC PO ONE (08:43)
[2023-04-27] MEDS: MAG SULF 1GM/100ML (MAG RUN) 1 GM in IV 1 EA IV ONE (08:43)
[2023-04-27] MEDS ORDERED: KCL 10MEQ/100ML SWI (KRUN) 10 MEQ in IV 1 EA IV SCH (09:00)
[2023-04-27] MEDS: VANCOMYCIN HCL 1,000 MG, VIAL MATE ADAPTER 1 EACH in D5W 250 ML IV SCH (12:03)
[2023-04-27] MEDS: SERTRALINE HCL 50 MG TAB PO SCH (13:11)
[2023-04-28] VITALS (7 sets, daily range): BP systolic 120–165; BP diastolic 61–96; TEMP 97.6–98.5; O2SAT 94–98
[2023-04-28 05:00] LABS: BASO % 0.3 % (0.0-1.0); EOS # 0.3 10^3/uL (0.0-0.5); EOS % 2.5 % (0.0-3.0); HEMATOCRIT 41.7 % (36.0-47.0); HEMOGLOBIN 12.2 g/dl (12.0-15.5); LYMPH # 1.6 10^3/uL (1.5-5.0); LYMPH % 14.5 % (24.0-44.0); MEAN CORPUSCULAR HEMOGLOBIN 22.1 pg (27.0-33.0); MEAN CORPUSCULAR HGB CONC 29.3 g/dl (32.0-36.5); MEAN CORPUSCULAR VOLUME 75.7 fl (80.0-96.0); MONO # 0.8 10^3/uL (0.0-0.8); NEUTROPHILS # 8.2 10^3/uL (1.5-8.5); NEUTROPHILS % 75.4 % (36.0-66.0); PLATELET COUNT, AUTOMATED 333 10^3/uL (150-450); RED BLOOD COUNT 5.51 10^6/uL (4.00-5.40); WHITE BLOOD COUNT 10.9 10^3/uL (4.0-10.0)
[2023-04-28 05:23] LABS: BLOOD UREA NITROGEN 11 MG/DL (9-23); CALCIUM LEVEL 9.2 MG/DL (8.5-10.1); CARBON DIOXIDE LEVEL 30 MMOL/L (20-31); CHLORIDE LEVEL 99 MMOL/L (98-107); CREATININE FOR GFR 0.41 MG/DL (0.55-1.30); GLOMERULAR FILTRATION RATE > 60.0 (>60); GLUCOSE, FASTING 115 MG/DL (60-100); MAGNESIUM LEVEL 1.9 MG/DL (1.8-2.4); POTASSIUM SERUM 4.6 MMOL/L (3.5-5.1); SODIUM LEVEL 135 MMOL/L (136-145)
[2023-04-28] MEDS: cefTRIAXone SOD 2 GM in D5W MINI-BAG PLUS 50 ML IV SCH (11:38)
[2023-04-28 11:40] LABS: VANCOMYCIN LEVEL TROUGH 9.4 UG/ML (10.0-20.0)
[2023-04-28] MEDS: VANCOMYCIN HCL 1,000 MG, VIAL MATE ADAPTER 1 EACH in D5W 250 ML IV SCH (14:39)
[2023-04-28] MEDS: SODIUM CHLORIDE 0.9% INJ 10 ML SYR IV PRN (20:18)
[2023-04-29] VITALS (7 sets, daily range): BP systolic 123–128; BP diastolic 66–74; TEMP 98.1–98.8; O2SAT 61–95
[2023-04-29 07:00] LABS: BASO % 0.2 % (0.0-1.0); EOS # 0.2 10^3/uL (0.0-0.5); EOS % 1.4 % (0.0-3.0); HEMATOCRIT 39.8 % (36.0-47.0); HEMOGLOBIN 11.9 g/dl (12.0-15.5); LYMPH # 1.4 10^3/uL (1.5-5.0); LYMPH % 12.6 % (24.0-44.0); MEAN CORPUSCULAR HEMOGLOBIN 22.3 pg (27.0-33.0); MEAN CORPUSCULAR HGB CONC 29.9 g/dl (32.0-36.5); MEAN CORPUSCULAR VOLUME 74.7 fl (80.0-96.0); MONO # 0.9 10^3/uL (0.0-0.8); MONO % 7.5 % (2.0-8.0); NEUTROPHILS # 8.8 10^3/uL (1.5-8.5); NEUTROPHILS % 77.8 % (36.0-66.0); PLATELET COUNT, AUTOMATED 377 10^3/uL (150-450); RED BLOOD COUNT 5.33 10^6/uL (4.00-5.40); WHITE BLOOD COUNT 11.4 10^3/uL (4.0-10.0)
[2023-04-29 07:25] LABS: BLOOD UREA NITROGEN 11 MG/DL (9-23); CARBON DIOXIDE LEVEL 31 MMOL/L (20-31); CHLORIDE LEVEL 97 MMOL/L (98-107); CREATININE FOR GFR 0.43 MG/DL (0.55-1.30); GLOMERULAR FILTRATION RATE > 60.0 (>60); GLUCOSE, FASTING 101 MG/DL (60-100); MAGNESIUM LEVEL 2.1 MG/DL (1.8-2.4); POTASSIUM SERUM 3.9 MMOL/L (3.5-5.1); SODIUM LEVEL 133 MMOL/L (136-145)
[2023-04-29 08:43] LABS: VANCOMYCIN RANDOM 7.2 UG/ML
[2023-04-29 11:05] LABS: AMORPHOUS SEDIMENT SMALL (NEGATIVE); APPEARANCE, URINE HAZY (CLEAR); BACTERIA, URINE AUTO NEGATIVE (NEGATIVE); BILIRUBIN, URINE AUTO NEGATIVE (NEGATIVE); BLOOD, URINE BLOOD 1+ (NEGATIVE); COLOR, URINE YELLOW (YELLOW); GLUCOSE, URINE (UA) AUTO NEGATIVE (NEGATIVE); KETONE, URINE AUTO NEGATIVE (NEGATIVE); LEUKOCYTE ESTERASE, URINE AUTO NEGATIVE (NEGATIVE); MUCUS, URINE SMALL (NEGATIVE); NITRITE, URINE AUTO NEGATIVE (NEGATIVE); PROTEIN, URINE AUTO 1+ mg/dL (NEGATIVE); RBC, URINE AUTO 86 /HPF (0-3); SPECIFIC GRAVITY URINE AUTO 1.016 (1.002-1.035); SQUAMOUS EPITHELIAL CELL UR AU 0 /HPF (0-6); WBC, URINE AUTO 1 /HPF (0-3)
[2023-04-29] MEDS: DAPTOMYCIN IV SCH (15:04)
[2023-04-29] MEDS: NS IV SCH (15:04)
[2023-04-29] MEDS: SODIUM CHLORIDE 0.9% INJ 10 ML SYR IV SCH (19:25)
[2023-04-29] MEDS: SODIUM CHLORIDE 0.9% INJ 10 ML SYR IV PRN (22:36)
[2023-04-30 03:58] LABS: ABG BASE EXCESS 4.4 (-2.0-2.0); ABG HCO3 28.6 MMOL/L (22.0-26.0); ABG O2 SATURATION 96.6 % (95.0-99.0); ABG PARTIAL PRESSURE CO2 40.8 mmHg (35.0-45.0); ABG PARTIAL PRESSURE O2 86.6 mmHg (75.0-100.0); ABG STANDARD HCO3 28.4 MMOL/L. (22.0-26.0); ABG TOTAL CO2 29.8 MMOL/L (22.0-29.0); ABG pH (ARTERIAL) 7.463 UNITS (7.350-7.450)
[2023-04-30 06:02] LABS: BASO % 0.2 % (0.0-1.0); EOS # 0.1 10^3/uL (0.0-0.5); EOS % 1.2 % (0.0-3.0); HEMATOCRIT 39.3 % (36.0-47.0); HEMOGLOBIN 11.9 g/dl (12.0-15.5); LYMPH # 1.4 10^3/uL (1.5-5.0); LYMPH % 13.1 % (24.0-44.0); MEAN CORPUSCULAR HEMOGLOBIN 22.6 pg (27.0-33.0); MEAN CORPUSCULAR HGB CONC 30.3 g/dl (32.0-36.5); MEAN CORPUSCULAR VOLUME 74.6 fl (80.0-96.0); MONO # 0.8 10^3/uL (0.0-0.8); NEUTROPHILS % 77.1 % (36.0-66.0); PLATELET COUNT, AUTOMATED 362 10^3/uL (150-450); RED BLOOD COUNT 5.27 10^6/uL (4.00-5.40); WHITE BLOOD COUNT 10.4 10^3/uL (4.0-10.0)
[2023-04-30 06:33] LABS: BLOOD UREA NITROGEN 11 MG/DL (9-23); CALCIUM LEVEL 9.9 MG/DL (8.5-10.1); CARBON DIOXIDE LEVEL 32 MMOL/L (20-31); CHLORIDE LEVEL 96 MMOL/L (98-107); CREATININE FOR GFR 0.48 MG/DL (0.55-1.30); GLOMERULAR FILTRATION RATE > 60.0 (>60); GLUCOSE, FASTING 96 MG/DL (60-100); MAGNESIUM LEVEL 1.9 MG/DL (1.8-2.4); POTASSIUM SERUM 3.7 MMOL/L (3.5-5.1); SODIUM LEVEL 135 MMOL/L (136-145)
[2023-04-30 06:48] VITALS: BP 136/77; TEMP 98.1; O2SAT 95
[2023-04-30] MEDS: ACETAMINOPHEN 325MG/10.15ML UDC GT PRN (07:54)
[2023-04-30 14:00] VITALS: BP 142/76; TEMP 97.9; O2SAT 95
[2023-04-30 15:09] LABS: BETA-2 GLYCOPROTEIN I ABY IGA <9 (0-25); BETA-2 GLYCOPROTEIN I ABY IGG <9 (0-20); BETA-2 GLYCOPROTEIN I ABY IGM <9 (0-32)
[2023-04-30] MEDS: SODIUM CHLORIDE 0.9% INJ 10 ML SYR IV SCH (18:01)
[2023-04-30 19:45] VITALS: BP 139/77; TEMP 98.1; O2SAT 95
[2023-05-01 06:00] VITALS: BP 135/73; TEMP 98.2; O2SAT 93
[2023-05-01 07:59] LABS: BASO % 0.3 % (0.0-1.0); EOS # 0.2 10^3/uL (0.0-0.5); EOS % 2.1 % (0.0-3.0); HEMATOCRIT 39.7 % (36.0-47.0); HEMOGLOBIN 11.8 g/dl (12.0-15.5); LYMPH # 1.3 10^3/uL (1.5-5.0); LYMPH % 17.5 % (24.0-44.0); MEAN CORPUSCULAR HEMOGLOBIN 22.2 pg (27.0-33.0); MEAN CORPUSCULAR HGB CONC 29.7 g/dl (32.0-36.5); MEAN CORPUSCULAR VOLUME 74.6 fl (80.0-96.0); MONO # 0.7 10^3/uL (0.0-0.8); MONO % 9.7 % (2.0-8.0); NEUTROPHILS # 5.4 10^3/uL (1.5-8.5); NEUTROPHILS % 70.1 % (36.0-66.0); PLATELET COUNT, AUTOMATED 329 10^3/uL (150-450); RED BLOOD COUNT 5.32 10^6/uL (4.00-5.40); WHITE BLOOD COUNT 7.7 10^3/uL (4.0-10.0)
[2023-05-01 08:21] LABS: BLOOD UREA NITROGEN 10 MG/DL (9-23); CALCIUM LEVEL 9.7 MG/DL (8.5-10.1); CARBON DIOXIDE LEVEL 32 MMOL/L (20-31); CHLORIDE LEVEL 100 MMOL/L (98-107); CREATININE FOR GFR 0.44 MG/DL (0.55-1.30); GLOMERULAR FILTRATION RATE > 60.0 (>60); GLUCOSE, FASTING 90 MG/DL (60-100); MAGNESIUM LEVEL 1.9 MG/DL (1.8-2.4); POTASSIUM SERUM 3.6 MMOL/L (3.5-5.1); SODIUM LEVEL 138 MMOL/L (136-145)
[2023-05-01] MEDS: NYSTATIN 500,000U/5ML SUSP UDC PO SCH (10:27)
[2023-05-01] MEDS: ONDANSETRON 4MG 2ML VIAL IV PRN (10:27)
[2023-05-01 13:21] VITALS: O2SAT 94
[2023-05-01 14:00] VITALS: BP 134/72; TEMP 98.2; O2SAT 92
[2023-05-01 21:17] VITALS: BP 157/71; TEMP 98.1; O2SAT 95
[2023-05-02 06:00] VITALS: BP 129/70; TEMP 98.4; O2SAT 92
[2023-05-02 11:45] VITALS: O2SAT 98
[2023-05-02 14:00] VITALS: BP 134/67; TEMP 98.1; O2SAT 91
[2023-05-02] MEDS: FUROSEMIDE 20MG/2ML VIAL IV ONE (17:13)
[2023-05-02 20:50] VITALS: BP 115/69; TEMP 98.2; O2SAT 92
[2023-05-03] VITALS (7 sets, daily range): BP systolic 120–122; BP diastolic 66–73; TEMP 97.9–98.2; O2SAT 90–96
[2023-05-03 07:10] LABS: BASO % 0.3 % (0.0-1.0); EOS # 0.2 10^3/uL (0.0-0.5); EOS % 2.7 % (0.0-3.0); HEMATOCRIT 45.6 % (36.0-47.0); HEMOGLOBIN 13.3 g/dl (12.0-15.5); LYMPH # 1.4 10^3/uL (1.5-5.0); LYMPH % 18.3 % (24.0-44.0); MEAN CORPUSCULAR HEMOGLOBIN 22.1 pg (27.0-33.0); MEAN CORPUSCULAR HGB CONC 29.2 g/dl (32.0-36.5); MEAN CORPUSCULAR VOLUME 75.9 fl (80.0-96.0); MONO # 0.6 10^3/uL (0.0-0.8); MONO % 7.9 % (2.0-8.0); NEUTROPHILS # 5.2 10^3/uL (1.5-8.5); NEUTROPHILS % 70.5 % (36.0-66.0); PLATELET COUNT, AUTOMATED 330 10^3/uL (150-450); RED BLOOD COUNT 6.01 10^6/uL (4.00-5.40); WHITE BLOOD COUNT 7.4 10^3/uL (4.0-10.0)
[2023-05-03 07:34] LABS: ALBUMIN 3.3 G/DL (3.2-5.2); ALKALINE PHOSPHATASE 105 U/L (46-116); ALT/SGPT 48 U/L (7.0-40); AST/SGOT 35 U/L (<34); BILIRUBIN,TOTAL 0.4 MG/DL (0.3-1.2); BLOOD UREA NITROGEN 12 MG/DL (9-23); CALCIUM LEVEL 9.9 MG/DL (8.5-10.1); CARBON DIOXIDE LEVEL 32 MMOL/L (20-31); CHLORIDE LEVEL 100 MMOL/L (98-107); CREATININE FOR GFR 0.48 MG/DL (0.55-1.30); GLOMERULAR FILTRATION RATE > 60.0 (>60); GLUCOSE, FASTING 112 MG/DL (60-100); POTASSIUM SERUM 3.8 MMOL/L (3.5-5.1); SODIUM LEVEL 137 MMOL/L (136-145); TOTAL PROTEIN 7.6 G/DL (5.7-8.2)
[2023-05-04 04:46] VITALS: O2SAT 95
[2023-05-04 05:21] LABS: BASO % 0.3 % (0.0-1.0); EOS # 0.3 10^3/uL (0.0-0.5); EOS % 3.7 % (0.0-3.0); HEMATOCRIT 41.3 % (36.0-47.0); HEMOGLOBIN 12.1 g/dl (12.0-15.5); LYMPH # 1.4 10^3/uL (1.5-5.0); LYMPH % 17.5 % (24.0-44.0); MEAN CORPUSCULAR HEMOGLOBIN 21.6 pg (27.0-33.0); MEAN CORPUSCULAR HGB CONC 29.3 g/dl (32.0-36.5); MEAN CORPUSCULAR VOLUME 73.9 fl (80.0-96.0); MONO # 0.7 10^3/uL (0.0-0.8); MONO % 9.3 % (2.0-8.0); NEUTROPHILS # 5.4 10^3/uL (1.5-8.5); NEUTROPHILS % 68.9 % (36.0-66.0); PLATELET COUNT, AUTOMATED 310 10^3/uL (150-450); RED BLOOD COUNT 5.59 10^6/uL (4.00-5.40); WHITE BLOOD COUNT 7.8 10^3/uL (4.0-10.0)
[2023-05-04 05:44] VITALS: BP 128/68; TEMP 98.1; O2SAT 93
[2023-05-04 06:07] LABS: ALBUMIN 3.1 G/DL (3.2-5.2); ALKALINE PHOSPHATASE 100 U/L (46-116); ALT/SGPT 46 U/L (7.0-40); AST/SGOT 30 U/L (<34); BILIRUBIN,TOTAL 0.5 MG/DL (0.3-1.2); BLOOD UREA NITROGEN 11 MG/DL (9-23); CARBON DIOXIDE LEVEL 31 MMOL/L (20-31); CHLORIDE LEVEL 98 MMOL/L (98-107); CREATININE FOR GFR 0.45 MG/DL (0.55-1.30); GLOMERULAR FILTRATION RATE > 60.0 (>60); GLUCOSE, FASTING 106 MG/DL (60-100); POTASSIUM SERUM 3.6 MMOL/L (3.5-5.1); SODIUM LEVEL 136 MMOL/L (136-145); TOTAL PROTEIN 7.2 G/DL (5.7-8.2)
[2023-05-04 14:00] VITALS: BP 102/57; TEMP 98.2; O2SAT 94
[2023-05-04 20:40] VITALS: BP 126/65; TEMP 99.1; O2SAT 94
[2023-05-04] MEDS: SODIUM CHLORIDE 0.9% INJ 10 ML SYR IV PRN (21:12)
[2023-05-04] MEDS: MIRTAZAPINE 15 MG TAB PO SCH (21:12)
[2023-05-05] VITALS (9 sets, daily range): BP systolic 110–125; BP diastolic 61–81; TEMP 97.9–98.8; O2SAT 91–97
[2023-05-05 06:58] LABS: BASO % 0.3 % (0.0-1.0); EOS # 0.4 10^3/uL (0.0-0.5); EOS % 6.3 % (0.0-3.0); HEMATOCRIT 39.9 % (36.0-47.0); HEMOGLOBIN 11.9 g/dl (12.0-15.5); LYMPH # 1.5 10^3/uL (1.5-5.0); LYMPH % 23.3 % (24.0-44.0); MEAN CORPUSCULAR HEMOGLOBIN 22.4 pg (27.0-33.0); MEAN CORPUSCULAR HGB CONC 29.8 g/dl (32.0-36.5); MEAN CORPUSCULAR VOLUME 75.1 fl (80.0-96.0); MONO # 0.6 10^3/uL (0.0-0.8); MONO % 9.2 % (2.0-8.0); NEUTROPHILS # 3.8 10^3/uL (1.5-8.5); NEUTROPHILS % 60.7 % (36.0-66.0); PLATELET COUNT, AUTOMATED 288 10^3/uL (150-450); RED BLOOD COUNT 5.31 10^6/uL (4.00-5.40); WHITE BLOOD COUNT 6.3 10^3/uL (4.0-10.0)
[2023-05-05 07:20] LABS: ALKALINE PHOSPHATASE 92 U/L (46-116); ALT/SGPT 51 U/L (7.0-40); AST/SGOT 31 U/L (<34); BILIRUBIN,TOTAL 0.4 MG/DL (0.3-1.2); BLOOD UREA NITROGEN 10 MG/DL (9-23); CALCIUM LEVEL 9.6 MG/DL (8.5-10.1); CARBON DIOXIDE LEVEL 34 MMOL/L (20-31); CHLORIDE LEVEL 102 MMOL/L (98-107); CREATININE FOR GFR 0.54 MG/DL (0.55-1.30); GLOMERULAR FILTRATION RATE > 60.0 (>60); GLUCOSE, FASTING 98 MG/DL (60-100); POTASSIUM SERUM 3.6 MMOL/L (3.5-5.1); SODIUM LEVEL 140 MMOL/L (136-145); TOTAL PROTEIN 6.9 G/DL (5.7-8.2)
[2023-05-05 08:04] LABS: MAGNESIUM LEVEL 1.8 MG/DL (1.8-2.4); PHOSPHORUS LEVEL 4.7 MG/DL (2.5-4.9)
[2023-05-05] MEDS: BACITRACIN OINTMENT 30GM TUBE TOP PRN (23:30)
[2023-05-06 06:00] VITALS: BP 130/70; TEMP 98.8; O2SAT 95
[2023-05-06 06:19] VITALS: O2SAT 94
[2023-05-06 08:05] LABS: BASO % 0.3 % (0.0-1.0); EOS # 0.4 10^3/uL (0.0-0.5); EOS % 5.8 % (0.0-3.0); HEMATOCRIT 41.1 % (36.0-47.0); HEMOGLOBIN 12.4 g/dl (12.0-15.5); LYMPH # 1.7 10^3/uL (1.5-5.0); LYMPH % 25.4 % (24.0-44.0); MEAN CORPUSCULAR HEMOGLOBIN 22.3 pg (27.0-33.0); MEAN CORPUSCULAR HGB CONC 30.2 g/dl (32.0-36.5); MEAN CORPUSCULAR VOLUME 73.9 fl (80.0-96.0); MONO # 0.6 10^3/uL (0.0-0.8); MONO % 8.2 % (2.0-8.0); NEUTROPHILS # 4.1 10^3/uL (1.5-8.5); NEUTROPHILS % 60.2 % (36.0-66.0); PLATELET COUNT, AUTOMATED 274 10^3/uL (150-450); RED BLOOD COUNT 5.56 10^6/uL (4.00-5.40); WHITE BLOOD COUNT 6.7 10^3/uL (4.0-10.0)
[2023-05-06 08:35] LABS: ALKALINE PHOSPHATASE 97 U/L (46-116); ALT/SGPT 58 U/L (7.0-40); AST/SGOT 30 U/L (<34); BILIRUBIN,TOTAL 0.4 MG/DL (0.3-1.2); BLOOD UREA NITROGEN 10 MG/DL (9-23); CARBON DIOXIDE LEVEL 31 MMOL/L (20-31); CHLORIDE LEVEL 100 MMOL/L (98-107); GLOMERULAR FILTRATION RATE > 60.0 (>60); GLUCOSE, FASTING 98 MG/DL (60-100); SODIUM LEVEL 137 MMOL/L (136-145); TOTAL PROTEIN 7.1 G/DL (5.7-8.2)
[2023-05-06] MEDS: GABAPENTIN 100 MG CAP PO SCH (08:55)
[2023-05-06 14:00] VITALS: BP 129/90; TEMP 99.4; O2SAT 98
[2023-05-06 21:52] VITALS: BP 125/99; TEMP 98.5; O2SAT 95
[2023-05-07 05:00] VITALS: BP 114/75; TEMP 97.9; O2SAT 96
[2023-05-07] MEDS: SENOKOT S TAB PO SCH (10:21)
[2023-05-07] MEDS: ACETAMINOPHEN 325MG/10.15ML UDC PO PRN (10:22)
[2023-05-07 10:26] LABS: BASO % 0.3 % (0.0-1.0); EOS # 0.3 10^3/uL (0.0-0.5); EOS % 4.5 % (0.0-3.0); HEMATOCRIT 44.5 % (36.0-47.0); HEMOGLOBIN 13.1 g/dl (12.0-15.5); LYMPH # 1.4 10^3/uL (1.5-5.0); LYMPH % 19.6 % (24.0-44.0); MEAN CORPUSCULAR HEMOGLOBIN 22.1 pg (27.0-33.0); MEAN CORPUSCULAR HGB CONC 29.4 g/dl (32.0-36.5); MEAN CORPUSCULAR VOLUME 75.2 fl (80.0-96.0); MONO # 0.6 10^3/uL (0.0-0.8); MONO % 7.7 % (2.0-8.0); NEUTROPHILS # 4.9 10^3/uL (1.5-8.5); NEUTROPHILS % 67.6 % (36.0-66.0); PLATELET COUNT, AUTOMATED 228 10^3/uL (150-450); RED BLOOD COUNT 5.92 10^6/uL (4.00-5.40); WHITE BLOOD COUNT 7.3 10^3/uL (4.0-10.0)
[2023-05-07 10:44] LABS: ALBUMIN 3.1 G/DL (3.2-5.2); ALKALINE PHOSPHATASE 97 U/L (46-116); ALT/SGPT 64 U/L (7.0-40); AST/SGOT 34 U/L (<34); BILIRUBIN,TOTAL 0.4 MG/DL (0.3-1.2); BLOOD UREA NITROGEN 11 MG/DL (9-23); CALCIUM LEVEL 9.8 MG/DL (8.5-10.1); CARBON DIOXIDE LEVEL 29 MMOL/L (20-31); CHLORIDE LEVEL 101 MMOL/L (98-107); CREATININE FOR GFR 0.47 MG/DL (0.55-1.30); GLOMERULAR FILTRATION RATE > 60.0 (>60); GLUCOSE, FASTING 99 MG/DL (60-100); POTASSIUM SERUM 4.2 MMOL/L (3.5-5.1); SODIUM LEVEL 136 MMOL/L (136-145); TOTAL PROTEIN 7.1 G/DL (5.7-8.2)
[2023-05-07] MEDS: guaiFENesin DM *SUGAR FREE* 5ML**DIABETIC TUSSIN DM PO SCH (12:00)
[2023-05-07] MEDS: ACETYLCYSTEINE 20% 4 ML VIAL (200MG/ML) INH SCH (12:25)
[2023-05-07] MEDS: PANTOPRAZOLE 40MG TAB (PROTONIX) PO SCH (13:04)
[2023-05-07 14:00] VITALS: BP 128/68; TEMP 98.1; O2SAT 94
[2023-05-07 20:30] VITALS: BP 118/65; TEMP 98.8; O2SAT 90
[2023-05-07] MEDS: guaiFENesin 200 MG TAB PO PRN (20:38)
[2023-05-07] MEDS: SODIUM CHLORIDE NASAL 0.65% SPRAY BTL (OCEAN) PRN (20:41)
[2023-05-08 05:09] VITALS: BP 148/89; TEMP 98.1; O2SAT 93
[2023-05-08] MEDS: BISACODYL 10MG SUPP PR PRN (10:00)
[2023-05-08 11:30] LABS: BASO % 0.1 % (0.0-1.0); EOS # 0.3 10^3/uL (0.0-0.5); EOS % 3.7 % (0.0-3.0); HEMATOCRIT 41.8 % (36.0-47.0); HEMOGLOBIN 12.7 g/dl (12.0-15.5); LYMPH # 1.8 10^3/uL (1.5-5.0); LYMPH % 22.8 % (24.0-44.0); MEAN CORPUSCULAR HEMOGLOBIN 22.4 pg (27.0-33.0); MEAN CORPUSCULAR HGB CONC 30.4 g/dl (32.0-36.5); MEAN CORPUSCULAR VOLUME 73.6 fl (80.0-96.0); MONO # 0.5 10^3/uL (0.0-0.8); MONO % 6.8 % (2.0-8.0); NEUTROPHILS # 5.2 10^3/uL (1.5-8.5); NEUTROPHILS % 66.3 % (36.0-66.0); PLATELET COUNT, AUTOMATED 266 10^3/uL (150-450); RED BLOOD COUNT 5.68 10^6/uL (4.00-5.40); WHITE BLOOD COUNT 7.8 10^3/uL (4.0-10.0)
[2023-05-08 11:55] LABS: ALBUMIN 3.2 G/DL (3.2-5.2); ALKALINE PHOSPHATASE 99 U/L (46-116); ALT/SGPT 64 U/L (7.0-40); AST/SGOT 31 U/L (<34); BILIRUBIN,TOTAL 0.4 MG/DL (0.3-1.2); BLOOD UREA NITROGEN 9 MG/DL (9-23); CALCIUM LEVEL 9.9 MG/DL (8.5-10.1); CARBON DIOXIDE LEVEL 30 MMOL/L (20-31); CHLORIDE LEVEL 101 MMOL/L (98-107); CREATININE FOR GFR 0.44 MG/DL (0.55-1.30); GLOMERULAR FILTRATION RATE > 60.0 (>60); GLUCOSE, FASTING 92 MG/DL (60-100); POTASSIUM SERUM 4.1 MMOL/L (3.5-5.1); SODIUM LEVEL 135 MMOL/L (136-145); TOTAL PROTEIN 7.2 G/DL (5.7-8.2)
[2023-05-08 14:00] VITALS: BP 133/68; TEMP 98.1; O2SAT 95
[2023-05-08 21:15] VITALS: O2SAT 96
[2023-05-08 21:45] VITALS: BP 136/67; TEMP 97.9; O2SAT 100
[2023-05-09 04:53] VITALS: BP 134/74; TEMP 98.1; O2SAT 97
[2023-05-09 14:00] VITALS: BP 132/68; TEMP 98.2; O2SAT 91
[2023-05-09 20:51] VITALS: BP 130/74; TEMP 98.1; O2SAT 99
[2023-05-10 05:22] VITALS: BP 119/67; TEMP 97.9; O2SAT 97
[2023-05-10 11:17] VITALS: O2SAT 94
[2023-05-10 14:00] VITALS: BP 121/71; TEMP 98.1; O2SAT 96
[2023-05-10 16:30] VITALS: BP 134/65; TEMP 98.1; O2SAT 98
[2023-05-10 20:00] VITALS: BP 121/66; TEMP 98.1; O2SAT 93
[2023-05-11 06:00] VITALS: BP 114/60; TEMP 98.1; O2SAT 99
[2023-05-11 11:34] LABS: HEMATOCRIT 42.5 % (36.0-47.0); HEMOGLOBIN 12.9 g/dl (12.0-15.5); MEAN CORPUSCULAR HEMOGLOBIN 22.5 pg (27.0-33.0); MEAN CORPUSCULAR HGB CONC 30.4 g/dl (32.0-36.5); MEAN CORPUSCULAR VOLUME 74.2 fl (80.0-96.0); PLATELET COUNT, AUTOMATED 257 10^3/uL (150-450); RED BLOOD COUNT 5.73 10^6/uL (4.00-5.40); WHITE BLOOD COUNT 6.7 10^3/uL (4.0-10.0)
[2023-05-11 14:00] VITALS: BP 131/81; TEMP 98.1; O2SAT 95
[2023-05-11 16:00] VITALS: O2SAT 97
[2023-05-11 20:51] VITALS: BP 129/71; TEMP 98.2; O2SAT 95
[2023-05-12 06:11] VITALS: BP 122/64; TEMP 97.9; O2SAT 94
[2023-05-12] MEDS: ACETYLCYSTEINE 20% 4 ML VIAL (200MG/ML) INH PRN (08:08)
[2023-05-12 14:00] VITALS: BP 122/87; TEMP 97.9; O2SAT 97
[2023-05-12 18:30] VITALS: BP 127/81; TEMP 98.2; O2SAT 95
[2023-05-12 19:50] VITALS: O2SAT 98
[2023-05-13 09:00] VITALS: O2SAT 94
[2023-05-13 14:00] VITALS: BP 125/80; TEMP 98.2; O2SAT 95
[2023-05-13 21:00] VITALS: O2SAT 95
[2023-05-14 03:10] VITALS: BP 127/76; TEMP 97.7; O2SAT 94
[2023-05-15 04:25] VITALS: BP 116/63; TEMP 97.9; O2SAT 92
[2023-05-16 05:30] VITALS: BP 114/69; TEMP 97.3; O2SAT 93
[2023-05-16 14:20] VITALS: O2SAT 91
[2023-05-17 06:49] VITALS: BP 140/76; TEMP 98.1; O2SAT 97
[2023-05-17 08:15] VITALS: O2SAT 93
[2023-05-17] MEDS: ONDANSETRON 4MG ORAL DISINTEGRATING TAB PO PRN (08:48)
[2023-05-17 22:48] VITALS: O2SAT 93
[2023-05-18 06:00] VITALS: BP 118/66; TEMP 97.9; O2SAT 93
[2023-05-18 09:38] VITALS: O2SAT 92
[2023-05-18 21:06] VITALS: O2SAT 94
[2023-05-19 06:00] VITALS: BP 123/66; TEMP 97.9; O2SAT 96
[2023-05-19 06:04] LABS: BASO % 0.4 % (0.0-1.0); EOS # 0.2 10^3/uL (0.0-0.5); EOS % 3.4 % (0.0-3.0); HEMATOCRIT 43.7 % (36.0-47.0); HEMOGLOBIN 13.1 g/dl (12.0-15.5); LYMPH # 1.5 10^3/uL (1.5-5.0); LYMPH % 26.6 % (24.0-44.0); MEAN CORPUSCULAR HEMOGLOBIN 22.4 pg (27.0-33.0); MEAN CORPUSCULAR VOLUME 74.7 fl (80.0-96.0); MONO # 0.5 10^3/uL (0.0-0.8); MONO % 9.5 % (2.0-8.0); NEUTROPHILS # 3.4 10^3/uL (1.5-8.5); NEUTROPHILS % 59.9 % (36.0-66.0); PLATELET COUNT, AUTOMATED 273 10^3/uL (150-450); RED BLOOD COUNT 5.85 10^6/uL (4.00-5.40); WHITE BLOOD COUNT 5.7 10^3/uL (4.0-10.0)
[2023-05-19 06:32] LABS: ALBUMIN 3.1 G/DL (3.2-5.2); ALKALINE PHOSPHATASE 94 U/L (46-116); ALT/SGPT 83 U/L (7.0-40); AST/SGOT 30 U/L (<34); BILIRUBIN,TOTAL 0.5 MG/DL (0.3-1.2); BLOOD UREA NITROGEN 7 MG/DL (9-23); CALCIUM LEVEL 10.1 MG/DL (8.5-10.1); CARBON DIOXIDE LEVEL 31 MMOL/L (20-31); CHLORIDE LEVEL 102 MMOL/L (98-107); CREATININE FOR GFR 0.52 MG/DL (0.55-1.30); GLOMERULAR FILTRATION RATE > 60.0 (>60); GLUCOSE, FASTING 99 MG/DL (60-100); MAGNESIUM LEVEL 1.6 MG/DL (1.8-2.4); POTASSIUM SERUM 3.6 MMOL/L (3.5-5.1); SODIUM LEVEL 139 MMOL/L (136-145); TOTAL PROTEIN 6.9 G/DL (5.7-8.2)
[2023-05-19] MEDS ORDERED: MAG SULF 1GM/100ML (MAG RUN) 1 GM in IV 1 EA IV SCH (08:00)
[2023-05-19] MEDS: MAGNESIUM OXIDE 400MG TAB (MAG-OX) PO ONE (09:00)
[2023-05-19 21:53] VITALS: O2SAT 92
[2023-05-20 05:17] VITALS: BP 128/69; TEMP 98.1; O2SAT 96
[2023-05-21 05:19] VITALS: BP 117/61; TEMP 97.3; O2SAT 96
[2023-05-21 13:32] VITALS: O2SAT 94
[2023-05-21 21:02] VITALS: O2SAT 96
[2023-05-22 06:00] VITALS: BP 128/64; TEMP 98.1; O2SAT 95
[2023-05-22 21:00] VITALS: O2SAT 93
[2023-05-23 06:00] VITALS: BP 111/67; TEMP 97; O2SAT 97
[2023-05-23 21:05] VITALS: O2SAT 95
[2023-05-24 06:00] VITALS: BP 136/69; TEMP 97.9; O2SAT 93
[2023-05-24 09:00] VITALS: O2SAT 94
[2023-05-24 21:59] VITALS: O2SAT 95
[2023-05-25 04:18] VITALS: O2SAT 89
[2023-05-25 04:21] VITALS: O2SAT 91
[2023-05-25 04:49] VITALS: O2SAT 92
[2023-05-25 05:14] VITALS: BP 118/68; TEMP 98.1; O2SAT 93
[2023-05-25 09:07] VITALS: O2SAT 94
[2023-05-26 06:00] VITALS: BP 110/64; TEMP 98.1; O2SAT 95
[2023-05-27 06:00] VITALS: O2SAT 96
[2023-05-27 06:02] VITALS: BP 116/69; TEMP 97.9; O2SAT 96
[2023-05-28 05:10] VITALS: BP 98/72; TEMP 98.1; O2SAT 96
[2023-05-29 04:32] VITALS: BP 117/70; TEMP 97.5; O2SAT 96
[2023-05-29 21:13] VITALS: O2SAT 99
[2023-05-30 05:40] VITALS: BP 114/59; TEMP 97.9; O2SAT 98
[2023-05-30 09:00] VITALS: O2SAT 95
[2023-05-30 22:03] VITALS: O2SAT 92
[2023-05-31 05:25] VITALS: BP 109/56; TEMP 98.1; O2SAT 96
[2023-05-31 09:00] VITALS: O2SAT 95
[2023-05-31 15:16] VITALS: O2SAT 97
[2023-05-31 19:30] VITALS: O2SAT 95
[2023-06-01] MEDS: NYSTATIN 100,000 UNITS/GM TOPICAL PWD 15GM TOP PRN (05:26)
[2023-06-01 06:00] VITALS: BP 112/57; TEMP 98.1; O2SAT 98
[2023-06-01 09:00] VITALS: O2SAT 95
[2023-06-02 00:24] VITALS: O2SAT 95
[2023-06-02 06:00] VITALS: BP 120/74; TEMP 97.5; O2SAT 95
[2023-06-02 09:00] VITALS: O2SAT 94
[2023-06-03 05:20] VITALS: BP 122/68; TEMP 98.1; O2SAT 96
[2023-06-03 09:00] VITALS: O2SAT 95
[2023-06-03 21:00] VITALS: O2SAT 94
[2023-06-04 05:02] VITALS: TEMP 98.1; O2SAT 95
[2023-06-04 10:00] VITALS: O2SAT 95
[2023-06-04 21:00] VITALS: O2SAT 94
[2023-06-05 06:00] VITALS: BP 128/67; TEMP 97.7; O2SAT 94
[2023-06-05 10:24] VITALS: O2SAT 96
[2023-06-05 21:00] VITALS: O2SAT 93
[2023-06-06 06:20] VITALS: BP 116/61; TEMP 97.7; O2SAT 93
[2023-06-06 11:00] VITALS: O2SAT 95
[2023-06-07 04:00] VITALS: O2SAT 94
[2023-06-07 04:21] VITALS: BP 121/61; TEMP 98.2; O2SAT 94
[2023-06-07 09:03] VITALS: O2SAT 98
[2023-06-07] MEDS: guaiFENesin ER TABLET 600 MG TAB PO SCH (11:57)
[2023-06-07 14:03] VITALS: O2SAT 94
[2023-06-07 21:50] VITALS: O2SAT 97
[2023-06-08 05:44] VITALS: BP 121/76; TEMP 98.2; O2SAT 96
[2023-06-08 13:42] VITALS: O2SAT 96
[2023-06-09 00:12] VITALS: O2SAT 95
[2023-06-09 06:00] VITALS: BP 118/56; TEMP 98.2; O2SAT 95
[2023-06-09] MEDS ORDERED: ACET20%4ML INH (11:21)
[2023-06-09] MEDS ORDERED: MIRT-10 PO (11:21)
[2023-06-09] MEDS ORDERED: SERT50TA29 PO (11:21)
[2023-06-09] MEDS ORDERED: BISA10SU PR (11:21)
[2023-06-09] MEDS ORDERED: GABA-1171 PO (11:21)
[2023-06-09] MEDS ORDERED: ASPI81CH8 PO (11:21)
[2023-06-09] MEDS ORDERED: ALB2.5NEB NEB (11:21)
[2023-06-09] MEDS ORDERED: BACI50OI TOP (11:21)
[2023-06-09] MEDS ORDERED: ATOR1TAB21 PO (11:21)
[2023-06-09] MEDS ORDERED: PANT40TA29 PO (11:21)
[2023-06-09] MEDS ORDERED: MIRA33506 PO (11:21)
[2023-06-09] MEDS ORDERED: MUCI600T31 PO (11:21)
== END 2023-06-09 13:28 | DRG 5 ==
LOC: M ED 18:20 → M ED INP 22:23 → M ICU 23:03 → M MS5PR 04-28 16:26 → M MSPAV 04-28 16:28
PROVIDERS: ADMIT Internal Medicine Pulmonary Disease; ATTEND Internal Medicine
PROC: 5A1955Z Respiratory Ventilation, Greater than 96 Consecutive Hours (ICD-10-PCS; 2023-04-06)
PROC: B246ZZZ Ultrasonography of Right and Left Heart (ICD-10-PCS; principal; 2023-04-09)
PROC: 0BH17EZ Insertion of Endotracheal Airway into Trachea, Via Natural or Artificial Opening (ICD-10-PCS; 2023-04-10)
PROC: 02HV33Z Insertion of Infusion Device into Superior Vena Cava, Percutaneous Approach (ICD-10-PCS; 2023-04-10)
PROC: 0B978ZX Drainage of Left Main Bronchus, Via Natural or Artificial Opening Endoscopic, Diagnostic (ICD-10-PCS; 2023-04-11)
PROC: 0B938ZX Drainage of Right Main Bronchus, Via Natural or Artificial Opening Endoscopic, Diagnostic (ICD-10-PCS; 2023-04-11)
PROC: 0B110F4 Bypass Trachea to Cutaneous with Tracheostomy Device, Open Approach (ICD-10-PCS; 2023-04-16)
DX: J96.22 Acute and chronic respiratory failure with hypercapnia (principal); I63.9 Cerebral infarction, unspecified; R65.21 Severe sepsis with septic shock; J69.0 Pneumonitis due to inhalation of food and vomit; G62.81 Critical illness polyneuropathy; G92.8 Other toxic encephalopathy; A41.9 Sepsis, unspecified organism; J15.69 Pneumonia due to other Gram-negative bacteria; E87.4 Mixed disorder of acid-base balance; I82.622 Acute embolism and thrombosis of deep veins of left upper extremity; I27.20 Pulmonary hypertension, unspecified; B37.0 Candidal stomatitis; E66.2 Morbid (severe) obesity with alveolar hypoventilation; G81.91 Hemiplegia, unspecified affecting right dominant side; Z68.43 Body mass index [BMI] 50.0-59.9, adult; R13.12 Dysphagia, oropharyngeal phase; G62.9 Polyneuropathy, unspecified; K76.0 Fatty (change of) liver, not elsewhere classified; F17.210 Nicotine dependence, cigarettes, uncomplicated; R19.7 Diarrhea, unspecified; H11.30 Conjunctival hemorrhage, unspecified eye; E87.6 Hypokalemia; F32.A Depression, unspecified; D64.9 Anemia, unspecified; D47.3 Essential (hemorrhagic) thrombocythemia; K21.9 Gastro-esophageal reflux disease without esophagitis; R07.89 Other chest pain; Z20.822 Contact with and (suspected) exposure to COVID-19